=== PATIENT | female | born 1950 | race Caucasian/White ===

== ENCOUNTER 2016-07-15 05:11 | Inpatient (IN) | payer OTHER ==
[2016-06-27 12:55] VITALS: BMI 35.0
--- NOTE | 2016-06-27 13:42 | PAT Medication Instructions ---
Service Date June 27, 2016. Current Home Medication List Alprazolam (Xanax), 0.5 MG PO BID Aspirin (Aspirin), 81 MG PO QAM Atorvastatin (Lipitor), 20 MG PO QPM Calcium Carbonate-Cholecalcife (Calcium 500 +D), 1 TAB PO QAM Canagliflozin (Invokana), 300 MG PO QAM Cholecalciferol (Vitamin D), 1 TAB PO QAM Coenzyme Q10 (Ubidecarenone) (Co Q-10), 1 TAB PO QAM Docusate Sodium (Colace), 1 CAP PO QAM Escitalopram (Lexapro), 10 MG PO QAM Etodolac (Etodolac), 1 TAB PO BID PRN for Pain Gkzcfozlztz-Gxmxykavkty-Wfl C- (Glucosamine Chondroitin), 1 TAB PO BID Hydrocortisone 1% (Hydrocortisone 1%), 1 DOSE TOP DAILY PRN for PRN Insulin Degludec (Tresiba Flextouch), 15 UNITS SQ QAM Multivitamin (Multivitamin), 1 TAB PO QAM Olmesartan/Hctz (Benicar Hct 40/12.5), 1 TAB PO QAM Oxycodone/Acetaminophen 10MG/325MG (Percocet 10MG/325MG), 1 TAB PO Q4H PRN for Pain Oxymorphone Hcl (Opana), 10 MG PO QAM Polyethylene Glycol 3350 (Miralax), 17 GM PO DAILY Probiotic Product (Probiotic), 1 TAB PO QAM Promethazine (Phenergan ), 12.5 MG PO Q6H PRN for Nausea or Vomiting Sennosides-Docusate Sodium (Stool Softener), 50 MG PO QAM Sitagliptin Phosphate (Januvia), 100 MG PO QAM Valacyclovir (Valtrex), 500 MG PO DAILY PRN for PRN Vitamin Mixture (Linda-C), 1,000 MG PO BID Medication Instructions For Your Scheduled Surgery - Check with surgeon for instructions: Etodolac (Etodolac), 1 TAB PO BID PRN for Pain - Hold the following medications 2 weeks prior to surgery: Wbgitbqohpa-Vnjttwcfttz-Rgi C- (Glucosamine Chondroitin), 1 TAB PO BID Coenzyme Q10 (Ubidecarenone) (Co Q-10), 1 TAB PO QAM - Hold the following medications 24 hours prior to surgery: Hydrocortisone 1% (Hydrocortisone 1%), 1 DOSE TOP DAILY PRN for PRN - Hold the following medications the morning of surgery: Vitamin Mixture (Linda-C), 1,000 MG PO BID Sitagliptin Phosphate (Januvia), 100 MG PO QAM Sennosides-Docusate Sodium (Stool Softener), 50 MG PO QAM Probiotic Product (Probiotic), 1 TAB PO QAM Polyethylene Glycol 3350 (Miralax), 17 GM PO DAILY Olmesartan/Hctz (Benicar Hct 40/12.5), 1 TAB PO QAM Multivitamin (Multivitamin), 1 TAB PO QAM Escitalopram (Lexapro), 10 MG PO QAM Docusate Sodium (Colace), 1 CAP PO QAM Cholecalciferol (Vitamin D), 1 TAB PO QAM Canagliflozin (Invokana), 300 MG PO QAM Calcium Carbonate-Cholecalcife (Calcium 500 +D), 1 TAB PO QAM - Take the following medications the morning of surgery with a sip of water: Valacyclovir (Valtrex), 500 MG PO DAILY PRN for PRN Promethazine (Phenergan ), 12.5 MG PO Q6H PRN for Nausea or Vomiting Alprazolam (Xanax), 0.5 MG PO BID Aspirin (Aspirin), 81 MG PO QAM Oxycodone/Acetaminophen 10MG/325MG (Percocet 10MG/325MG), 1 TAB PO Q4H PRN for Pain (okay to take up to 4 hours prior to surgery if needed) Oxymorphone Hcl (Opana), 10 MG PO QAM (okay to take up to 4 hours prior to surgery ifneeded) - Take the following medications as scheduled the night before surgery: Vitamin Mixture (Linda-C), 1,000 MG PO BID Valacyclovir (Valtrex), 500 MG PO DAILY PRN for PRN Promethazine (Phenergan ), 12.5 MG PO Q6H PRN for Nausea or Vomiting Atorvastatin (Lipitor), 20 MG PO QPM Alprazolam (Xanax), 0.5 MG PO BID - For Insulin Dependent Diabetic patients: Test blood sugar A.M. of surgery. - If blood sugar greater than 150, take half of your regular dose of: Insulin Degludec (Tresiba Flextouch), take 8 units - If blood sugar less than 150, do not take any: Insulin Degludec ( Tresiba Flextouch) If you have any questions please call us at [phone] (Breanna López PA-C) or [phone] or [phone]
--- NOTE | 2016-06-27 14:32 | DIAGNOSTIC IMAGING REPORT ---
CHEST 2 VIEWS ROUTINE CLINICAL HISTORY: Preoperative chest COMPARISON STUDY: No previous studies for comparison. FINDINGS: The cardiac and mediastinal contours are normal. There is no evidence of focal pulmonary consolidation. There is no evidence of failure. No pleural effusions are visualized.[ IMPRESSION: No active disease in the chest. Electronically signed by: Jesus Lopez M.D. 06/27/2016 2:30 PM Dictated Date/Time: 06/27/2016 2:30 PM
[2016-06-27 14:35] LABS: BASO % 0.5 %; BASO ABS # 0.03 K/uL (0-0.2); COMPLETE YES; EOS % 2.2 %; HEMATOCRIT 41.5 % (37-47); IG% 0.3 %; LYMPH ABS # 1.62 K/uL (1.2-3.4); MEAN CELL VOLUME 87.7 fL (80-100); MEAN CORPUSCULAR HEMOGLOBIN 27.7 pg (25-34); MEAN CORPUSCULAR HGB CONC 31.6 g/dl (32-36); MEAN PLATELET VOLUME 12.4 fL (7.4-10.4); MONO % 9.7 %; NEUT % 60.3 %; PLATELET COUNT 201 K/uL (130-400); RED BLOOD COUNT 4.73 M/uL (4.2-5.4)
[2016-06-27 14:38] LABS: URINE APPEARANCE CLEAR (CLEAR); URINE BILIRUBIN NEG (NEG); URINE COLOR DK YELLOW; URINE NITRITE NEG (NEG); URINE PH 5.5 (4.5-7.5); URINE SPECIFIC GRAVITY 1.038 (1.000-1.030); UROBILINOGEN NEG (NEG); ZZUR CULT IF INDIC CLEAN CATCH NO
[2016-06-27 14:41] LABS: BUN/CREATININE RATIO 24.6 (10-20); CALCIUM 9.7 mg/dl (8.5-10.1); CREATININE 0.99 mg/dl (0.60-1.20); POTASSIUM 4.4 mmol/L (3.5-5.1)
[2016-06-27 14:42] LABS: PARTIAL THROMBOPLASTIN RATIO 1.1
[2016-06-27 14:45] LABS: MANUAL MICROSCOPIC REQUIRED? NO; REVIEW REQ? NO
[2016-06-28 07:56] LABS: ESTIMATED AVERAGE GLUCOSE 166 mg/dl; HA1C FLAG Normal (Normal)
[~2016-07-15] VITALS: Ht 157.5 cm; Wt 87.5 kg
[2016-07-15] VITALS (9 sets, daily range): BP systolic 100–148; BP diastolic 65–78; PULSE 55–88; TEMP 36.4–37.1; O2SAT 93–97; Ht 157.5 cm; Wt 87.5 kg
[~2016-07-15 05:11] MED LIST: ALPR-411 PO; ASPI-461 PO; ATOR-22 PO; CALC-343 PO; CANA1TAB3 PO; CHOL100010 PO; COEN100C3 PO; DOCU-94 PO; ESCI10TA17 PO; ETOD500T95 PO; GLUCTAB7 PO; HYDCR1CL TOP; INSU1INJ33 SQ; MISCCAP80 PO; MULT-506 PO; OXYC-106 PO; OXYM10TA6 PO; POLY335019 PO; PROM12.57 PO; SENNTAB23 PO; SITA100T3 PO; VALA500T60 PO; VITA500T2 PO; [UNRECOGNIZED DRUG - CODE] PO
[2016-07-15] MEDS ORDERED: LACTATED RINGER'S 1000ML 1,000 ML IV SCH ×2 (06:00)
[2016-07-15] MEDS ORDERED: GABAPENTIN 300 MG CAP PO SCH (06:00)
[2016-07-15] MEDS ORDERED: CEFAZOLIN 2000 MG/60 ML D5W 60 ML IV SCH (06:00)
[2016-07-15] MEDS ORDERED: METOCLOPRAMIDE HCL 10 MG TAB PO SCH (06:00)
[2016-07-15] MEDS ORDERED: CeleBREX 200 MG CAP PO SCH (06:00)
[2016-07-15] MEDS ORDERED: ACETAMINOPHEN 500 MG TAB PO SCH (06:00)
[2016-07-15] MEDS ORDERED: VANCOMYCIN INJ 400 MG in NSS 100ML IR SCH (06:00)
[2016-07-15] MEDS ORDERED: POLYMYXIN B SULFATE 100,000 UNITS in NSS 100ML IR SCH (06:00)
[2016-07-15] MEDS ORDERED: ROPIVACAINE 5MG/ML 30 ML 150 MG, BUPIVACAINE/EPINEPHR 0.5% MPF 30 ML, KETOROLAC TROMETH... INFIL SCH ×7 (06:00)
[2016-07-15] MEDS ORDERED: FAMOTIDINE 20 MG TAB PO SCH (06:00)
[2016-07-15] MEDS ORDERED: LACTATED RINGER'S 1000ML 500 ML IV ONE (06:00)
[2016-07-15] MEDS ORDERED: ORTHO JOINT ANESTHETIC ONE (06:29)
[2016-07-15] MEDS: TRANEXAMIC ACID INJ 1,000 MG in SODIUM CHLORIDE 0.9% 100ML 100 ML IV SCH ×2 (06:30→11:04)
[2016-07-15] MEDS ORDERED: BACITRACIN 50000 UNIT VIAL ONE (06:30)
[2016-07-15] MEDS ORDERED: POVIDONE-IODINE OP SOLN 30 ML BTL ONE ×2 (06:30→07:39)
[2016-07-15] MEDS: OXYCODONE HCL 10 MG TABCR (OXYCONTIN) PO SCH ×2 (06:32→06:33)
[2016-07-15] MEDS ORDERED: FENTANYL CITRATE INJ 50 MCG/1 ML 2 ML VIAL ONE (06:42)
[2016-07-15] MEDS ORDERED: MIDAZOLAM HCL 1 MG/ML 2ML VIAL ONE ×2 (06:42→07:39)
[2016-07-15] MEDS ORDERED: BUPIVACAINE 0.5 % 5 MG/1 ML PF 10ML VIAL ONE (06:48)
--- NOTE | 2016-07-15 07:01 | History and Physical ---
History & Physical Date July 15, 2016. Chief Complaint R HIP PAIN History of Present Illness The patient is a 66 year old female with complaints of R HIP PAIN GREATER THAN 6 MONMTHS. pain 10/10 aggravated by all activities,Cannot walk without cane and distance less than 50 ft. Pain groin and radiates to buttock. Radiograph cw severe avn and head collapse. Additional History Hepatic Disease: No Endocrine Disorder: Yes Kidney Disease: No Hypertension: Yes Heart Disease: No Bleeding Tendencies: No Infectious Diseases: No Other: skin cancer fear of needles Allergies Coded Allergies: Adhesives (Verified Adverse Reaction, Mild, SKIN REDDNESS, 07/15/16) Morphine (Verified Adverse Reaction, Mild, VOMITTING, 07/15/16) Penicillins (Verified Adverse Reaction, Mild, DIARRHEA, 07/15/16) Home Medications Scheduled Alprazolam (Xanax), 0.5 MG PO BID Aspirin (Aspirin), 81 MG PO QAM Atorvastatin (Lipitor), 20 MG PO QPM Calcium Carbonate-Cholecalcife (Calcium 500 +D), 1 TAB PO QAM Canagliflozin (Invokana), 300 MG PO QAM Cholecalciferol (Vitamin D), 1 TAB PO QAM Coenzyme Q10 (Ubidecarenone) (Co Q-10), 1 TAB PO QAM Docusate Sodium (Colace), 1 CAP PO QAM Escitalopram (Lexapro), 10 MG PO QAM Ewobkberizl-Qcrzvpfoice-Wkd C- (Glucosamine Chondroitin), 1 TAB PO BID Insulin Degludec (Tresiba Flextouch), 15 UNITS SQ QAM Multivitamin (Multivitamin), 1 TAB PO QAM Olmesartan/Hctz (Benicar Hct 40/12.5), 1 TAB PO QAM Oxymorphone Hcl (Opana), 10 MG PO QAM Polyethylene Glycol 3350 (Miralax), 17 GM PO DAILY Probiotic Product (Probiotic), 1 TAB PO QAM Sitagliptin Phosphate (Januvia), 100 MG PO QAM Vitamin Mixture (Linda-C), 1,000 MG PO BID Scheduled PRN Etodolac (Etodolac), 1 TAB PO BID PRN for Pain Hydrocortisone 1% (Hydrocortisone 1%), 1 DOSE TOP DAILY PRN for PRN Oxycodone/Acetaminophen 10MG/325MG (Percocet 10MG/325MG), 1 TAB PO Q4H PRN for Pain Promethazine (Phenergan ), 12.5 MG PO Q6H PRN for Nausea or Vomiting Valacyclovir (Valtrex), 500 MG PO DAILY PRN for PRN Physical Examination Skin: warm/dry, no rash Eyes: normal inspection, EOMI, sclerae normal ENT: normal ENT inspection, pharynx normal Head: normocephalic, atraumatic Neck: supple, no adenopathy, trachea midline Respiratory/Chest: lungs clear, normal breath sounds, no respiratory distress Cardiovascular: regular rate, rhythm, no edema, no murmur Abdomen / GI: normal bowel sounds, non tender Extremities: + pertinent finding (R leg extremely painful w motion flex 50 no rotation due to pain ) Neurologic/Psych: no motor/sensory deficits, alert, normal reflexes, oriented x 3 Diagnosis SEVERE DJD/AVN R HIP HTN TYPE 2 DM HIGH CHOLESTEROL ANXIETY HX SKIN CANCER NARCOTIC DEPENDANCE ASA Classification: ASA Class III Plan of Treatment R ANTONIETA
[2016-07-15] MEDS ORDERED: PROPOFOL IV EMULSION 10 MG/ML 20 ML VIAL IV ONE ×2 (07:25→08:12)
[2016-07-15] MEDS ORDERED: LIDOCAINE HCL 2% 2 ML VIAL (20MG/ML) ONE (07:25)
[2016-07-15] MEDS ORDERED: DEXAMETHASONE SOD INJ 4 MG/ML VIAL ONE (07:26)
[2016-07-15] MEDS ORDERED: ONDANSETRON INJ 2 MG/ML 2 ML VIAL ONE (07:26)
[2016-07-15] MEDS ORDERED: FENTANYL CITRATE INJ 50 MCG/1 ML 2 ML VIAL IV PRN (07:30)
[2016-07-15] MEDS ORDERED: EpHEDrine SULFATE INJ 50 MG/ML AMP IV PRN (07:30)
[2016-07-15] MEDS ORDERED: ONDANSETRON INJ 2 MG/ML 2 ML VIAL IV PRN ×2 (07:30→09:00)
[2016-07-15] MEDS ORDERED: ATROPINE SULFATE 0.1 MG/ML 5ML SYR IV PRN (07:30)
[2016-07-15] MEDS ORDERED: PHENYLEPHRINE 100MCG/ML 5ML SYR ONE (07:35)
[2016-07-15] MEDS ORDERED: EpHEDrine SULFATE 50MG/5ML SYR ONE (08:49)
--- NOTE | 2016-07-15 08:50 | [facility] Post Operative Brief Note ---
Immediate Operative Summary Operative Date July 15, 2016. Pre-Operative Diagnosis Right Hip Degenerative Joint Disease Post-Operative Diagnosis Right Hip Degenerative Joint Disease Procedure(s) Performed Right Total Hip Arthroplasty, Direct Anterior Approach Surgeon Dr. Mac Joseph Flaring Machine Operator Surgeon(s) Kita Croft PA-C Estimated Blood Loss 100 mL Findings SEVERE DZ OBESE Specimens A: Right Femoral Head Complication(s) None Disposition Recovery Room / PACU
[2016-07-15] MEDS ORDERED: CANAGLIFLOZIN 300 MG PO SCH (09:00)
[2016-07-15] MEDS ORDERED: ALUMINUM/MAGNESIUM/SIMETH (MAALOX MAX) 30 ML UDC PO PRN (09:00)
[2016-07-15] MEDS ORDERED: HCTZ PO SCH (09:00)
[2016-07-15] MEDS ORDERED: MAGNESIUM HYDROXIDE SUSP 30 ML UDC PO PRN (09:00)
[2016-07-15] MEDS ORDERED: PROMETHAZINE HCL 25 MG TAB PO PRN (09:00)
[2016-07-15] MEDS ORDERED: HYDROCORTISONE 1% CR 30 GM TUBE EXT PRN (09:00)
[2016-07-15] MEDS ORDERED: SITAGLIPTIN 100 MG TAB PO SCH (09:00)
[2016-07-15] MEDS ORDERED: OLMESARTAN PO SCH (09:00)
[2016-07-15] MEDS ORDERED: METOCLOPRAMIDE HCL INJ 5 MG/ML 2 ML VIAL IV PRN (09:00)
[2016-07-15] MEDS ORDERED: TRAMADOL HCL 50 MG TAB PO PRN (09:00)
[2016-07-15] MEDS ORDERED: BISACODYL 10 MG SUPP PR PRN (09:00)
[2016-07-15] MEDS ORDERED: NON-FORMULARY MEDICATION (Probiotic Product (Probiotic) 1 TAB) PO SCH (09:00)
[2016-07-15] MEDS ORDERED: SOD PHOSPHATE/SOD BIPHOSPHATE ENEMA 132 ML BTL PR PRN (09:00)
[2016-07-15] MEDS ORDERED: DiphenhydrAMINE HCL 50 MG/ML VIAL IV PRN (09:00)
[2016-07-15] MEDS ORDERED: ZOLPIDEM TARTRATE 5 MG TAB PO PRN (09:00)
--- NOTE | 2016-07-15 09:03 | DIAGNOSTIC IMAGING REPORT ---
INTRAOPERATIVE FLUOROSCOPIC IMAGE OF THE RIGHT HIP CLINICAL HISTORY: Right hip arthroplasty. COMPARISON STUDY: No previous studies for comparison. Fluoroscopy time: 17 seconds. FINDINGS: Single AP fluoroscopic image demonstrates anatomic alignment of the right hip arthroplasty. There is no fracture or unexpected radiopaque foreign body. Acetabular screw is in place. IMPRESSION: Expected intraoperative findings during right hip arthroplasty. Electronically signed by: Aiden Fraser M.D. 07/15/2016 9:02 AM Dictated Date/Time: 07/15/2016 9:01 AM
--- NOTE | 2016-07-15 09:45 | DIAGNOSTIC IMAGING REPORT ---
AP PELVIS, CROSSTABLE LATERAL RIGHT HIP History: Right total hip arthroplasty. Degenerative arthritis. Postop. FINDINGS: The patient is status post a right total hip arthroplasty. The hardware is intact. No fracture or dislocation. Skin dante and surgical drains are in place. IMPRESSION: Right total hip arthroplasty. No evidence for hardware complication Electronically signed by: Lonnie Mina M.D. 07/15/2016 9:43 AM Dictated Date/Time: 07/15/2016 9:43 AM
--- NOTE | 2016-07-15 10:14 | Anesthesiology Progress Note ---
Anesthesia Post Op Note Date & Time July 15, 2016 at 10:14 Vital Signs Pain Intensity: 0 Vital Signs Past 12 Hours Date Time Temp Pulse Resp B/P Pulse Ox O2 Delivery O2 Flow Rate FiO2 07/15/16 09:50 36.8 64 16 117/62 96 Nasal Cannula 2 07/15/16 09:40 36.8 63 16 121/54 99 Nasal Cannula 2 07/15/16 09:30 15 134/60 97 Nasal Cannula 2 07/15/16 09:20 65 15 118/64 97 Nasal Cannula 2 07/15/16 09:12 36.9 66 15 107/68 95 Nasal Cannula 2 07/15/16 05:38 36.8 88 20 148/76 94 Room Air Notes Mental Status: alert / awake / arousable, participated in evaluation Pt Amnestic to Procedure: Yes Nausea / Vomiting: adequately controlled Pain: adequately controlled Airway Patency, RR, SpO2: stable & adequate BP & HR: stable & adequate Hydration State: stable & adequate Neuraxial Anesthesia: was administered, sensory block is resolving Anesthetic Complications: no major complications apparent
[2016-07-15] MEDS ORDERED: PHARMACY GLYCEMIC MGMT CONSULT SCH (10:32)
--- NOTE | 2016-07-15 10:57 | Pharmacy Progress Note ---
Glycemic Control Intl Consult Date of Service July 15, 2016. Scope Glycemic Pharmacist consulted by Dr Joseph on 07/15/2016 for glycemic control and to write orders per [facility] inpatient glycemic control protocol Objective Weight (Kilograms): 87.50 Accuchecks BSG (last 24hrs): Test 07/15/16 05:31 07/15/16 09:20 Bedside Glucose 159 mg/dl (70-90) 137 mg/dl (70-90) HbA1c Test 06/27/16 13:23 Hemoglobin A1c 7.4 % (4.5-5.6) H Recent Pertinent Medications Outpatient Anti-diabetic Regimen: * Tresiba 15 units qAM; Januvia 100 mg PO qday; Invokana 300 mg PO daily Risk Factors for Insulin Resistance: * Steroids: dex 4 mg IV intraoperatively and 4 mg topically * Infection: Clinda pre-op and q8 post-op * Recent Surgery: hip replacement POD #0 * Diet: type 2 diet Assessment & Plan ASSESSMENT: * ADA & AACE recommend a goal blood sugar range 140-180 mg/dl for the majority of critically ill & non-critically ill patients. However, more stringent targets may be selected in individual cases. Will utilize more stringent goal of 110-140mg/dl based on patient age & comorbidities. Additionally, tighter glycemic control is warranted to facilitate wound/infection healing. * Ms Youngblood is a 66 y/o F admitted post-operatively for a R hip replacement. She received steroids intraoperatively. Her last known dose of Tresiba 15 units morning of 07/14/16. Her blood sugar this morning prior to surgery was 159 mg/dL and 137 mg/dL. Due to steroids use, her home dose of Tresiba was stress by a factor of 1.3 to compensate. A weight-based stress of 2 was utilized for correctional insulin. Her home dose of insulin will be resumed the next day ( POD 1). * The patient's home oral medications, specially Januvia, will be restarted once adequate oral intake is established and patient remains stable. Ideally this will be 1-2 days prior to discharge. PLAN FOR INPATIENT GLYCEMIC CONTROL: * Holding outpatient oral diabetes medications * Basal insulin with LANTUS 20 units SQ x 1 then 15 units daily * Correctional Insulin with NOVOLOG per scale ACHS * Goal Range: Low 110 mg/dL - High 140 mg/dL * Correction Factor: 25 mg/dL/unit * Nutritional / Prandial insulin per carb ratio of 1 unit per 9 grams CHO consumed * Please note that the plan above was derived based on current level of insulin resistance and hospital stress. These recommendations are appropriate for inpatient admission only. Plan of care upon discharge will need to be reassessed to avoid potential outpatient hypo/hyperglycemia. Thank you.
[2016-07-15] MEDS ORDERED: GLUCAGON FOR INJ 1 MG VIAL SQ PRN (11:00)
[2016-07-15] MEDS ORDERED: GLUCOSE 40% GEL 15 GM TUBE PO PRN (11:00)
[2016-07-15] MEDS ORDERED: GLUCOSE 10 TABS/TUBE PO PRN (11:00)
[2016-07-15] MEDS ORDERED: DEXTROSE 50% 50 ML SYR IV PRN (11:00)
[2016-07-15] MEDS ORDERED: INSULIN GLARGINE SOLOSTAR 100 UNITS/ML 3 ML PEN SC ONE (11:00)
[2016-07-15] MEDS: SODIUM CHLORIDE 0.9% 1000ML 1,000 ML IV SCH ×2 (11:00→21:11)
[2016-07-15] MEDS: HYDROCHLOROTHIAZIDE 25 MG TAB PO SCH (12:12)
[2016-07-15] MEDS: CHOLECALCIFEROL 1000 INTER.UNIT TAB PO SCH (12:13)
[2016-07-15] MEDS: MULTIVITAMIN TAB PO SCH (12:13)
[2016-07-15] MEDS: PANTOprazole SOD 40 MG TAB PO SCH (12:13)
[2016-07-15] MEDS: ESCITALOPRAM OXALATE 10 MG TAB PO SCH (12:14)
[2016-07-15] MEDS: POLYETHYLENE (MIRALAX) 17 GM PACK PO SCH (12:14)
[2016-07-15] MEDS: ASPIRIN 81 MG ECTAB PO SCH ×2 (12:14→21:15)
[2016-07-15] MEDS: INSULIN ASPART 100 UNITS/ML 3 ML PEN SC SCH ×3 (12:27→21:25)
[2016-07-15] MEDS: OLMESARTAN MEDOXOMIL 40 MG TAB PO SCH (12:28)
[2016-07-15] MEDS: ALPRAZOLAM 0.5 MG TAB PO SCH ×2 (12:29→21:15)
[2016-07-15] MEDS: KETOROLAC TROMETHAMINE 15 MG/ML VIAL IV. SCH ×2 (12:31→18:04)
[2016-07-15] MEDS: ACETAMINOPHEN 500 MG TAB PO SCH ×2 (13:17→21:18)
[2016-07-15] MEDS: CLINDAMYCIN IV 600 MG in DEXTROSE 5% ADD-VANTAGE 50ML 50 ML IV SCH ×2 (13:17→21:26)
--- NOTE | 2016-07-15 14:50 | OPERATIVE REPORT ---
DATE OF OPERATION: 07/15/2016 PREOPERATIVE DIAGNOSIS: Degenerative arthritis, right hip, severe. POSTOPERATIVE DIAGNOSIS: Same. PROCEDURE: Right total hip replacement. SURGEON: Mac Joseph MD ELECTROPLATER AUTOMATIC: Kita Croft PA-C. ANESTHESIA: Spinal. BLOOD LOSS: 100 mL. REPLACEMENT FLUIDS: 1800 mL of crystalloid. DRAINS: Hemovacs x1. CULTURES: None. COMPLICATIONS: None. COMPONENTS USED: [employer] Hip System: Acetabulum size 58, femur size 3 standard offset, femoral head -3 32 mm. NOTE: Kita Croft PA-C was present and assisted throughout due to the complicated nature of this case. She helped with preparation and set up, first assisted throughout and personally closed the fascial, subcutaneous and skin layers and applied the postoperative dressing. DESCRIPTION: Following satisfactory spinal, the patient was supine. The right leg was placed in the traction device and the left leg in the well leg masterson. The right leg was prepared with ChloraPrep and draped sterilely. Following a surgical time-out an anterior approach was performed in the interval between the sartorius and tensor muscles. The circumflex femoral vessels were identified and ligated. An anterior capsulotomy was performed exposing an arthritic femoral neck and head. Femoral neck and head were trimmed and removed. The acetabular self-retraining retractor was placed. Acetabular preparation was completed and reaming was completed under fluoroscopic guidance. A 48 shell was impacted into an anatomic position and secured with a dome screw. Local anesthetic was placed and after irrigation, the polyethylene liner was placed. Attention was turned to the femur. The femur was placed into position of external rotation, extension and adduction. The femoral canal was prepared up to a size 3 standard offset, the -3 head showed best leg lengths using fluoroscopic landmarks and 3 showed good fit and fill of the proximal canal. The trial component was removed after dislocation. Wound was irrigated. The final implant was placed with fluoroscopy confirming similar position. A Betadine soak was performed. The Betadine was irrigated. A drain was placed. The capsule was closed with 1-0 Vicryl interrupted. The fascia was closed with a running suture of 1 Vicryl, the subcutaneous tissues with 2-0 Vicryl and the skin with a running subcuticular stitch of 3-0 V-Loc. Dermabond and a dry dressing were applied. The patient was returned to her bed in stable condition. I attest to the content of the Intraoperative Record and any orders documented therein. Any exceptio ns are noted below.
[2016-07-15] MEDS ORDERED: TRANEXAMIC ACID INJ 1,000 MG in SODIUM CHLORIDE 0.9% 100ML 100 ML IV ONE (15:00)
[2016-07-15] MEDS ORDERED: ATORVASTATIN 20 MG TAB PO SCH (21:00)
[2016-07-15] MEDS ORDERED: SENNA 8.6 MG TAB PO SCH (21:00)
[2016-07-16] MEDS: KETOROLAC TROMETHAMINE 15 MG/ML VIAL IV. SCH ×4 (00:02→13:17)
[2016-07-16] MEDS ORDERED: NURSING VERBAL MED ORDER ONE ×2 (01:00→01:30)
[2016-07-16] MEDS ORDERED: COUGH DROP (SUGAR FREE) LOZ 24 LOZ/1 BOX ONE (01:26)
[2016-07-16] MEDS ORDERED: COUGH DROP (SUGAR FREE) LOZ 24 LOZ/1 BOX PO PRN (02:00)
[2016-07-16] MEDS: OXYCODONE HCL IR 5 MG TAB (IMMEDIATE RELEASE) PO PRN ×3 (02:54→12:20)
[2016-07-16 03:00] VITALS: BP 123/71; PULSE 77; TEMP 36.8; O2SAT 96
[2016-07-16] MEDS: SODIUM CHLORIDE 0.9% 1000ML 1,000 ML IV SCH (05:32)
[2016-07-16] MEDS: ACETAMINOPHEN 500 MG TAB PO SCH ×2 (05:32→14:35)
[2016-07-16 06:16] LABS: BASO % 0.1 %; BASO ABS # 0.01 K/uL (0-0.2); COMPLETE YES; HEMATOCRIT 33.4 % (37-47); IG% 0.3 %; MEAN CELL VOLUME 86.3 fL (80-100); MEAN CORPUSCULAR HEMOGLOBIN 27.4 pg (25-34); MEAN CORPUSCULAR HGB CONC 31.7 g/dl (32-36); MEAN PLATELET VOLUME 11.8 fL (7.4-10.4); MONO % 10.2 %; NEUT % 82.4 %; PLATELET COUNT 179 K/uL (130-400); RED BLOOD COUNT 3.87 M/uL (4.2-5.4); WHITE BLOOD COUNT 12.77 K/uL (4.8-10.8)
[2016-07-16 06:52] LABS: BUN/CREATININE RATIO 26.9 (10-20); CALCIUM 8.1 mg/dl (8.5-10.1); CREATININE 0.74 mg/dl (0.60-1.20); POTASSIUM 4.2 mmol/L (3.5-5.1)
[2016-07-16 07:15] VITALS: O2SAT 96
--- NOTE | 2016-07-16 08:04 | Anesthesiology Progress Note ---
Anesthesia Post Op Note Date & Time July 16, 2016 at 08:04 Vital Signs Pain Intensity: 5.0 Vital Signs Past 12 Hours Date Time Temp Pulse Resp B/P Pulse Ox O2 Delivery O2 Flow Rate FiO2 07/16/16 07:15 96 Room Air 07/16/16 03:00 36.8 77 19 123/71 96 Room Air 07/16/16 00:00 Room Air 07/15/16 22:48 36.9 74 16 123/65 93 Room Air Notes Mental Status: alert / awake / arousable, participated in evaluation Pt Amnestic to Procedure: Yes Nausea / Vomiting: adequately controlled Pain: adequately controlled Airway Patency, RR, SpO2: stable & adequate BP & HR: stable & adequate Hydration State: stable & adequate Neuraxial Anesthesia: sensory block resolved Anesthetic Complications: no major complications apparent
[2016-07-16 08:15] VITALS: BP 114/62; PULSE 52; TEMP 36.5; O2SAT 96
[2016-07-16] MEDS: ALPRAZOLAM 0.5 MG TAB PO SCH (08:28)
[2016-07-16] MEDS: MULTIVITAMIN TAB PO SCH (08:28)
[2016-07-16] MEDS: PANTOprazole SOD 40 MG TAB PO SCH (08:28)
[2016-07-16] MEDS: HYDROCHLOROTHIAZIDE 25 MG TAB PO SCH (08:29)
[2016-07-16] MEDS: ASPIRIN 81 MG ECTAB PO SCH (08:29)
[2016-07-16] MEDS: POLYETHYLENE (MIRALAX) 17 GM PACK PO SCH (08:30)
[2016-07-16] MEDS: CHOLECALCIFEROL 1000 INTER.UNIT TAB PO SCH (08:30)
[2016-07-16] MEDS: OLMESARTAN MEDOXOMIL 40 MG TAB PO SCH (08:30)
[2016-07-16] MEDS: ESCITALOPRAM OXALATE 10 MG TAB PO SCH (08:31)
[2016-07-16] MEDS: INSULIN ASPART 100 UNITS/ML 3 ML PEN SC SCH ×2 (08:35→13:06)
[2016-07-16] MEDS ORDERED: INSULIN GLARGINE SOLOSTAR 100 UNITS/ML 3 ML PEN SC SCH (09:00)
--- NOTE | 2016-07-16 09:50 | DISCHARGE SUMMARY ---
DISCHARGE DIAGNOSIS: Degenerative joint disease, right hip. SECONDARY DIAGNOSIS: None. CONSULTS: None. COMPLICATIONS: None. PROCEDURE: The patient underwent a direct anterior right total hip arthroplasty with Dr. Joseph on 07/15/2016. BRIEF HISTORY: Please see previously dictated history and physical. HOSPITAL SUMMARY: The patient was admitted on the above day for the above procedure. Procedure went without complication. Postop day 1, the patient was feeling well without complaints. She denied chest pain or shortness of breath. Vital signs were stable. She was afebrile. Dressing was clean, dry and intact. She was neurovascularly intact. Calves were soft and nontender. Hemovac drained 155 and 100 mL. Hemoglobin was 10.6. The patient began physical therapy per protocol. She was discharged to home later that day in stable condition. For further review please see the chart. Lab, x-ray data and discharge instructions as per chart.
--- NOTE | 2016-07-16 09:58 | Discharge Instructions ---
Discharge Instructions Date of Service July 16, 2016. Admission Reason for Admission: Right Hip Degenerative Arthritis Discharge Discharge Diagnosis / Problem: sp right total hip, direct anterior Discharge Goals Goal(s): Decrease discomfort, Improve function, Increase independence Activity Recommendations Activity Limitations: per Instructions/Follow-up section . Instructions / Follow-Up Instructions / Follow-Up ACTIVITY RECOMMENDATIONS: SELF CARE INSTRUCTIONS AFTER TOTAL HIP REPLACEMENT : Direct Anterior Approach Until the incision and soft tissues around your hip have healed, there is a possibility that the hip prosthesis could dislocate. A. Hip flexion ( Up & Down out of chair or steps ) may be difficult. This is normal. B. Numbness in front of the thigh is also normal for a few weeks. C. Use hand rails when walking on stairs. D. Wear low heeled shoes with non-slip soles. E. Be sure that your floors are free of things that could trip you - throw rugs , electrical cords, small objects. Avoid wet and waxed floors, especially with crutches and canes. F. Try to walk several times a day with rest periods between. G. Continue with all the exercises taught to you in the hospital. Again, make walking a part of your daily routine. SPECIAL CARE INSTRUCTIONS: VERY IMPORTANT TO READ AND REVIEW A. You may still be at risk for phlebitis and blood clots. 1. Wear surgical stockings (DAVE hose) for 2 weeks after surgery to improve circulation and reduce swelling. 2. Take Aspirin 81mg twice daily for 4 weeks or as directed by your doctor. This is your blood thinner. 3. High risk patients may be prescribed a stronger blood thinner if necessary. 4. If you are on Coumadin normally, your family doctor/children's literature professor should monitor your blood work. Expect a phone call the day of or the day after bloodwork is drawn to adjust your dosage. B. You must take antibiotics before having dental work, bladder, bowel and other surgery. Your doctor will provide you with a permanent card to carry describing precautions. C. Call [facility] if you have a fever, redness or swelling around the incision, cloudy drainage from incision, or sudden increase in pain in your hip, not relieved by your regular pain medication. D. Please call the office at if you have any concerns or questions about your operation or recovery. * YOU MAY SHOWER, NO TUB BATHS UNTIL CLEARED BY YOUR DOCTOR. - Keep an extra close eye on the top portion of your incision. Be sure to keep clean & dry. * WEAR DAVE HOSE 20 HOURS PER DAY FOR 2 WEEKS. * YOU MAY PROGRESS FROM A WALKER, TO A CANE, TO INDEPENDENT AT YOUR OWN PACE. * MOST PATIENTS WILL HAVE HOME NURSING FOR THERAPY. IF YOU DECIDE TO DO OUTPATIENT PHYSICAL THERAPY, PLEASE SCHEDULE THIS 3 TIMES PER WEEK. * DERMABOND Prineo- This is a mesh tape dressing that is covered with glue. It should remain in place until the incision is properly healed, usually 10-14 days. This dressing is designed to naturally slough off. You may trim the excess mesh tape as it peels off. Incision may be briefly wet in a shower. Dry immediately by blotting with a clean, dry towel. Do not bath or swim until instructed by your doctor. Do not scratch, rub, or pick at the dressing. Do not apply any topical ointments or lotions until dressing is completely removed and/or instructed by your doctor. There may be a small piece of suture material at one end of your incision. Do not pull or trim this. If it is bothersome or catching on clothing, you may cover it with a band-aid. FOLLOW UP VISIT: If appointment is not already scheduled: Please call [facility] to make a follow-up appointment for 2 weeks after your surgery at . Current Hospital Diet Patient's current hospital diet: Diabetes Type 2 Diet Discharge Diet Recommended Diet: Regular Diet Procedures Procedures Performed: Right Total Hip Arthroplasty, Direct Anterior Approach Pending Studies Studies pending at discharge: no Laboratory Results Hemoglobin A1c Test 06/27/16 13:23 Range/Units Estimated Average Glucose 166 mg/dl Hemoglobin A1c 7.4 H 4.5-5.6 % Medical Emergencies . Who to Call and When: Medical Emergencies: If at any time you feel your situation is an emergency, please call 911 immediately. . Non-Emergent Contact Non-Emergency issues call your: Surgeon . "Provider Documentation" section prepared by Kita Croft. . VTE Core Measure Inpt VTE Proph given/why not?: Other Anticoagulation, T.E.D. Stockings, SCD's [place] Drug Monitoring Program Search Results: patient reviewed within database, no issues identified
[2016-07-16] MEDS ORDERED: CLB200 PO (10:02)
[2016-07-16] MEDS ORDERED: ONDA8TAB6 PO (10:02)
[2016-07-16] MEDS ORDERED: ASPI-461 PO (10:02)
[2016-07-16] MEDS ORDERED: RXC5 PO (10:02)
[2016-07-16] MEDS ORDERED: ACET-1138 PO (10:02)
[2016-07-16 10:03] VITALS: BP 114/62; PULSE 52; TEMP 36.5; O2SAT 96
[2016-07-16 10:13] VITALS: O2SAT 97
[2016-07-16 12:17] VITALS: BP 118/62; PULSE 64; TEMP 36.7; O2SAT 96
[2016-07-17] MEDS ORDERED: CeleBREX 200 MG CAP PO SCH (21:00)
[2016-09-28] MEDS ORDERED: RXC5 PO (09:07)
== END 2016-07-16 14:42 | disposition home health service (06) | DRG 470 ==
LOC: ENRESERVTM → ENRESERVDT → C.ACU 05:11 → C.3E 06:30
PROVIDERS: ADMIT Orthopaedic Surgery; ATTEND Orthopaedic Surgery
PROC: 0SR904Z Replacement of Right Hip Joint with Ceramic on Polyethylene Synthetic Substitute, Open Approach (ICD-10-PCS; principal; 2016-07-15 07:00)
DX: M17.12 Unilateral primary osteoarthritis, left knee (principal); M90.551 Osteonecrosis in diseases classified elsewhere, right thigh; I10 Essential (primary) hypertension; E11.9 Type 2 diabetes mellitus without complications; E78.00 Pure hypercholesterolemia, unspecified; F41.9 Anxiety disorder, unspecified; E66.9 Obesity, unspecified; Z68.35 Body mass index [BMI] 35.0-35.9, adult; Z87.891 Personal history of nicotine dependence; Z79.1 Long term (current) use of non-steroidal anti-inflammatories (NSAID); Z79.4 Long term (current) use of insulin; Z79.82 Long term (current) use of aspirin; Z79.84 Long term (current) use of oral hypoglycemic drugs; Z79.891 Long term (current) use of opiate analgesic

== ENCOUNTER 2016-09-25 13:54 | Inpatient (IN) | payer OTHER ==
[~2016-09-25] VITALS: Ht 157.5 cm; Wt 87.0 kg
[~2016-09-25 13:54] MED LIST changes: +ACET-1138 PO; +CLB200 PO; -ETOD500T95 PO; +ONDA8TAB6 PO; -OXYC-106 PO; +RXC5 PO; -SENNTAB23 PO
[2016-09-25] MEDS ORDERED: ONDANSETRON INJ 2 MG/ML 2 ML VIAL IV PRN (14:45)
[2016-09-25] MEDS ORDERED: NALOXONE HCL 0.4 MG/1 ML VIAL/CARP IV PRN (14:45)
[2016-09-25] MEDS ORDERED: LORAZEPAM 1 MG TAB PO PRN (14:45)
[2016-09-25] MEDS ORDERED: PROMETHAZINE HCL 25 MG TAB PO PRN (14:45)
[2016-09-25] MEDS ORDERED: ACETAMINOPHEN 325 MG TAB PO PRN (14:45)
[2016-09-25] MEDS ORDERED: OXYCODONE/ACETAMINOPHEN 5-325 TAB PO PRN (14:45)
[2016-09-25] MEDS ORDERED: PHARMACY GLYCEMIC MGMT CONSULT PRN (15:36)
--- NOTE | 2016-09-25 15:37 | HISTORY & PHYSICAL EXAMINATION ---
DATE OF ADMISSION: 09/25/2016 CHIEF COMPLAINT: Severe left leg pain. HISTORY OF PRESENT ILLNESS: This is a 66-year-old female who is approximately 6 weeks status post right total hip arthroplasty. She had been doing very nicely at home postoperatively, progressing appropriately. Unfortunately, approximately 2 days ago she had onset of back pain and severe left buttock and posterior thigh pain. It was incapacitating in nature. She denies any specific trauma, fall or event. She was taken to [facility] Emergency Room and admitted for pain control. As they were unsuccessful in alleviating her symptoms, she was transferred to our institution. Today, she continues to complain of significant left buttock pain, posterior thigh pain extending to the posterior knee. Right leg is asymptomatic. She is unable to ambulate secondary to the pain. She denies any loss of bowel or bladder control. She denies any perineal numbness. PAST MEDICAL HISTORY: Significant for diabetes and the above-mentioned total hip arthroplasty on the right. MEDICATIONS: Can be found on the chart for further review. PHYSICAL EXAMINATION: She is in obvious distress. Left lower extremity is propped up on pillows. She exhibits reasonable strength to bilateral plantarflexion, dorsiflexion and quadriceps extensor hallucis longus. Sensory is intact to cold and light touch. Negative log roll bilaterally. Significant tension signs with straight leg raising on the left as well as the right causing contralateral pain. CAT scan available for review from [facility] does describe severe multilevel spinal stenosis, severe at L4-L5. 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 PLAN: At this time, secondary to pain I will place her on a AIR HOSE COUPLER pump. We would like to obtain an MRI of the lumbar spine as soon as possible to further delineate any neural compression and the precise etiology. We will also complement this with x-rays of the lumbar spine for review. Consult medicine for medical management. Make further recommendations upon review of her imaging.
[2016-09-25] MEDS ORDERED: GLUCOSE 10 TABS/TUBE PO PRN (15:45)
[2016-09-25] MEDS ORDERED: GLUCOSE 40% GEL 15 GM TUBE PO PRN (15:45)
[2016-09-25] MEDS ORDERED: DEXTROSE 50% 50 ML SYR IV PRN (15:45)
[2016-09-25] MEDS ORDERED: GLUCAGON FOR INJ 1 MG VIAL SQ PRN (15:45)
--- NOTE | 2016-09-25 16:13 | DIAGNOSTIC IMAGING REPORT ---
CHEST 2 VIEWS ROUTINE CLINICAL HISTORY: pre op preoperative evaluation COMPARISON STUDY: 06/27/2016 FINDINGS: The bones soft tissues and hemidiaphragms are normal. The cardiomediastinal silhouette is normal. The lungs are clear. The pulmonary vasculature is normal. IMPRESSION: Negative chest. The above report was generated using voice recognition software. It may contain grammatical, syntax or spelling errors. Electronically signed by: Alton Rgoel M.D. 09/25/2016 4:12 PM Dictated Date/Time: 09/25/2016 4:11 PM
--- NOTE | 2016-09-25 16:34 | Pharmacy Progress Note ---
Glycemic Control Intl Consult Date of Service Sep 25, 2016. Scope Glycemic Pharmacist consulted by Dr Vazquez on 09/25/2016 for glycemic control and to write orders per [facility] inpatient glycemic control protocol Objective Weight (Kilograms): 87.000 Accuchecks BSG (last 24hrs): Test 09/25/16 14:39 Laboratory Data (last 24hrs) Test 09/25/16 14:39 Recent Pertinent Medications Outpatient Anti-diabetic Regimen: * Tresiba 15 units qAM and Invokana 300 mg PO daily * A1c = 7.4 % 06/27/16 Risk Factors for Insulin Resistance: * Diet: type 2 diabetic diet Assessment & Plan ASSESSMENT: * ADA & AACE recommend a goal blood sugar range 140-180 mg/dl for the majority of critically ill & non-critically ill patients. However, more stringent targets may be selected in individual cases. Will utilize more stringent goal of 110-140mg/dl based on patient age & comorbidities. Additionally, tighter glycemic control is warranted to prevent any future damage to future surgeries. * Ms Youngblood is a 66 y/o F admitted with uncontrolled leg and back pain. She is known to the glycemic service from her hip replacement surgery in June of this year. During this previous hospitalization, she tolerated weight based stress of 2 dosing for Lantus and correctional Novolog. She did receive dexamethasone during surgery that admission. * For this admission, no steroids are ordered. After review of imagining Dr Vazquez will determine his course of treatment. Will start a decreased Lantus dose tomorrow morning (reduced further is NPO). Also started slightly looser correctional insulin based on steroid effects from last admission. Recommendations for if steroids start are provided below. PLAN FOR INPATIENT GLYCEMIC CONTROL: * Basal insulin with LANTUS 12 units SQ qAM (10 units if NPO) * Correctional Insulin with NOVOLOG per scale ACHS * Goal Range: Low 110 mg/dL - High 140 mg/dL * Correction Factor: 30 mg/dL/unit * Nutritional / Prandial insulin per carb ratio of 1 unit per 10 grams CHO consumed If steroids are started, change orders to the following: -Lantus 15 units SQ qAM -Correctional insulin with Novolog -correction factor: 20 mg/dL/unit -nutritional insulin per carb ratio of 1 unit per 6 grams CHO consumed -add overnight accuchecks * Please note that the plan above was derived based on current level of insulin resistance and hospital stress. These recommendations are appropriate for inpatient admission only. Plan of care upon discharge will need to be reassessed to avoid potential outpatient hypo/hyperglycemia. Thank you.
[2016-09-25] MEDS: HYDROmorphone HCL 0.5MG/ML 50 ML CASSETTE IV PRN ×2 (16:43→22:50)
[2016-09-25] MEDS: LORAZEPAM INJ 1 MG in SYRINGE 0.5 ML IV PRN (16:48)
[2016-09-25] MEDS ORDERED: GADAVIST IV PRN (17:00)
--- NOTE | 2016-09-25 17:06 | DIAGNOSTIC IMAGING REPORT ---
LUMBAR SPINE COMBINATION HISTORY: Pain back and leg pain TECHNIQUE: Multiplanar multisequence MRI of the lumbar spine was performed both before and after the intravenous administration of contrast. COMPARISON: None. FINDINGS: For the purpose of the report the L5-S1 disc space will be located on axial image 27 of 30. Significant degenerative this changes throughout. No significant bone marrow replacing process. No abnormal postcontrast enhancement. L1-L2: Minimal disc bulge. Minimal impact anterior thecal sac. L2-L3: Minimal disc bulge. Minimal impact anterior thecal sac. L3-L4: No significant central canal or neural foraminal narrowing. L4-L5: Mild broad-based disc herniation with a small extruded disc fragment extending posterior to the left lateral aspect of L5 this. This is a maximum transaxial dimension of 8 x 7 mm. Maximum cephalocaudal dimension is 7 mm. There is moderate compromise of the left lateral recess and mild/moderate narrowing of the neuroforamina bilaterally, as well as spinal canal.. L5-S1: Mild disc bulge. IMPRESSION: 1. Broad-based disc herniation L4-L5 with extruded disc component extending posterior to the superior margin of L5 on the left. 2. There is moderate multifactorial narrowing of the spinal canal at this level as well as compromise of the left lateral recess 3. Maximum dimensions of the extruded disc fragment is 8 x 7 mm 4. Mild disc bulges at all additional levels The above report was generated using voice recognition software. It may contain grammatical, syntax or spelling errors. Electronically signed by: Alton Rogel M.D. 09/25/2016 5:05 PM Dictated Date/Time: 09/25/2016 4:59 PM
[2016-09-25 18:00] VITALS: BMI 35.1
[2016-09-25] MEDS: SODIUM CHLORIDE 0.9% 1000ML 1,000 ML IV SCH (18:13)
[2016-09-25 18:42] VITALS: BP 110/75; PULSE 92; TEMP 36.8; O2SAT 93
[2016-09-25] MEDS: INSULIN ASPART 100 UNITS/ML 3 ML PEN SC SCH ×2 (19:05→21:25)
--- NOTE | 2016-09-25 20:14 | Medical Consult ---
Consultation Date of Consultation: Sep 25, 2016. Attending Physician: Reason for Consultation: Medical management History of Present Illness This patient is a pleasant 66-year-old female that was admitted to the hospital with severe back pain due to spinal stenosis. We're consulted for medical management. The patient has a history of diabetes, hypertension and anxiety. She does not regularly check her sugars at home as she has a phobia of needles. She is on multiple oral agents, and claims that her sugars are well- controlled. She denies any current symptoms besides moderate back pain. No chest pain or shortness of breath. No history of pulmonary embolus or coronary artery disease. The patient underwent a hip arthroplasty earlier this year. Preoperatively, the patient had a stress test that was reportedly normal. She denies any exertional chest pain or dyspnea. Past Medical/Surgical History Hypertension hyperlipidemia Diabetes type 2 Anxiety Status post right hip arthroplasty Family History Strong family history of stroke. Her brother in his 50s of an ND. Social History Smoking Status: Former Smoker Alcohol Use: none Marital Status: Housing Status: lives with significant other Allergies Coded Allergies: Adhesives (Verified Adverse Reaction, Mild, SKIN REDDNESS, 07/15/16) Morphine (Verified Adverse Reaction, Mild, VOMITTING, 07/15/16) Penicillins (Verified Adverse Reaction, Mild, DIARRHEA, 07/15/16) Home Medications I personally verified the patient's medications. Please refer to the medical reconciliation Current Inpatient Medications Current Inpatient Medications Medications (Trade) Dose Ordered Sig/Ramiro Route Start Time Stop Time Status Last Admin Dose Admin Acetaminophen (Tylenol Tab) 650 mg Q6H PRN PO 09/25/16 14:45 10/25/16 14:44 Docusate Sodium (coLACE CAP) 100 mg BID PO 09/25/16 21:00 10/25/16 20:59 Ondansetron HCl (Zofran Inj) 4 mg Q6H PRN IV 09/25/16 14:45 10/25/16 14:44 Lorazepam (Ativan Tab) 1 mg Q6H PRN PO 09/25/16 14:45 10/25/16 14:44 Lorazepam 1 mg/ Syringe 1 ml @ 1 mls/min Q6H PRN IV 09/25/16 14:45 10/25/16 14:44 09/25/16 16:48 1 MLS/MIN Oxycodone/ Acetaminophen (Percocet 5-325mg Tab) Moderate to Severe nahomy... Q4H PRN PO 09/25/16 14:45 10/09/16 14:44 Naloxone HCl (Narcan Inj) 0.1 mg Q5M PRN IV 09/25/16 14:45 10/25/16 14:44 Hydromorphone HCl (Dilaudid Store Person) 25 mg PRN PRN IV 09/25/16 14:45 10/09/16 14:44 09/25/16 16:43 25 MG Sodium Chloride 1,000 ml @ 15 mls/hr Q24H IV 09/25/16 14:39 10/25/16 14:38 09/25/16 18:13 15 MLS/HR Aspirin (Ecotrin Tab) 81 mg BID PO 09/25/16 21:00 10/25/16 20:59 Atorvastatin Calcium (Lipitor Tab) 20 mg QPM PO 09/25/16 21:00 10/25/16 20:59 Escitalopram Oxalate (Lexapro Tab) 10 mg QAM PO 09/26/16 09:00 10/26/16 08:59 Promethazine HCl (Phenergan Tab) 12.5 mg Q6H PRN PO 09/25/16 14:45 10/25/16 14:44 Miscellaneous Information (Order Awaiting Action) 1 ea QS N/A 09/25/16 16:00 10/25/16 15:59 Miscellaneous Information (Consult Glycemic Management Pharmacy) 1 ea UD PRN N/A 09/25/16 15:36 10/25/16 15:35 Insulin Aspart (novoLOG ASPART) SLIDING SCALE ACHS SC 09/25/16 17:15 10/25/16 17:14 09/25/16 19:05 7 UNITS Glucose (Glucose 40% Gel) 15-30 GRAMS 15 GRAMS... UD PRN PO 09/25/16 15:45 10/25/16 15:44 Glucose (Glucose Chew Tab) 4-8 Tablets 4 Tabl... UD PRN PO 09/25/16 15:45 10/25/16 15:44 Dextrose (Dextrose 50% 50ML Syringe) 25-50ML OF 50% DW IV FOR... UD PRN IV 09/25/16 15:45 10/25/16 15:44 Glucagon (Glucagon Inj) 1 mg UD PRN SQ 09/25/16 15:45 10/25/16 15:44 Insulin Glargine (Lantus Solostar Pen) SEE PROTOCOL QAM SC 09/26/16 09:00 10/26/16 08:59 Gadobutrol (Gadavist) 8 mmol UD PRN IV 09/25/16 17:00 09/29/16 16:59 Review of Systems 10 system review performed and negative unless noted in HPI or below Physical Exam Date Time Temp Pulse Resp B/P (MAP) Pulse Ox O2 Delivery O2 Flow Rate FiO2 09/25/16 18:42 36.8 92 19 110/75 (87) 93 Room Air 09/25/16 14:04 37.7 99 16 174/84 96 Room Air General Appearance: no apparent distress Head: normocephalic Eyes: EOMI Neck: no JVD Respiratory/Chest: lungs clear Cardiovascular: regular rate, rhythm Abdomen/GI: normal bowel sounds, non tender, soft Extremities/Musculoskelatal: no calf tenderness, no pedal edema Neurologic/Psych: no motor/sensory deficits, oriented x 3 Skin: warm/dry Laboratory Results Last 24 Hours Test 09/25/16 14:39 09/25/16 18:02 Bedside Glucose 313 mg/dl Assessment & Plan This patient is a 66-year-old female with a history of diabetes, hypertension, hyperlipidemia and anxiety that presents with severe back pain that is failing medical management. She does have severe spinal stenosis. Dr. Vazquez will formulate a plan once he reviews further imaging -pain management, DVT prophylaxis, PT per primary team -I would recommend an aggressive bowel regimen given the amount of narcotics that she is requiring. Colace 100 mg twice daily scheduled. Milk of magnesia 1 dose daily scheduled. MiraLAX prn. ? borderline fever-->repeat vitals show temp WNL -continue to monitor. No current signs of infection. Lo culture if fever returns and hold surgical intervention Diabetes mellitus -Pharmacy managing -Patient is noncompliant with her Accu-Cheks at home. -ADA diet Hypertension -Hold Benicar for now -Cover Hydralazine 10 mg IV q 6 hr PRN Hyperlipidemia -Continue Lipitor 20 mg daily Anxiety -Continue Lexapro 20 mg daily -Continue Xanax 0.5 mg twice daily as needed Given her recent hip arthroplasty and negative stress test, she is an acceptable risk for surgery (pending her EKG, which I ordered). If however the pt spikes a fever, I would delay surgery, and lo culture. Of note, the patient is currently refusing blood work due to her fear of needles. We will give her one dose of xanax and possibly try to obtain blood then Thank you for this consult. We will continue to follow. Resident Physician Supervision Note: Pt seen/examined independently. I discussed the case with the resident and agree with the findings and plan as documented in the note. Any exceptions or clarifications are listed here: 66 y/o F HTN, HPL, DM - presenting for surgical eval due to spinal stenosis / intractable pain OE AAO x 3 S1,3 R CTAB NT, ND No CCE P: Sliding scale for DM Hold ARB dino-op Cont Statin Tx Pt's RCRI is 0.9% - recent normal stress and can proceed to surgery Documented By: Jeremy Recio Resident supervision has been performed by Dr. Recio
[2016-09-25] MEDS ORDERED: HydrALAZINE HCL 20 MG/ML VIAL IV. PRN (20:15)
[2016-09-25] MEDS: DOCUSATE SODIUM 100 MG CAP PO SCH (20:36)
[2016-09-25] MEDS: ASPIRIN 81 MG ECTAB PO SCH (20:36)
[2016-09-25] MEDS: ATORVASTATIN 20 MG TAB PO SCH (20:37)
[2016-09-25] MEDS: MAGNESIUM HYDROXIDE SUSP 30 ML UDC PO SCH (21:27)
[2016-09-25 23:07] VITALS: BP 105/66; PULSE 88; TEMP 36.8; O2SAT 93
[2016-09-26] VITALS (8 sets, daily range): BP systolic 97–120; BP diastolic 62–80; PULSE 74–94; TEMP 36.4–37.3; O2SAT 92–96; Ht 157.5 cm; Wt 87.0 kg
[2016-09-26] MEDS: HYDROmorphone HCL 0.5MG/ML 50 ML CASSETTE IV PRN ×3 (07:03→23:10)
[2016-09-26] MEDS: ESCITALOPRAM OXALATE 10 MG TAB PO SCH (08:21)
[2016-09-26] MEDS: ASPIRIN 81 MG ECTAB PO SCH ×2 (08:22→20:55)
[2016-09-26] MEDS: DOCUSATE SODIUM 100 MG CAP PO SCH ×2 (08:22→20:55)
[2016-09-26] MEDS: MAGNESIUM HYDROXIDE SUSP 30 ML UDC PO SCH ×2 (08:23→20:55)
--- NOTE | 2016-09-26 08:35 | Progress Note ---
Progress Note Date of Service Sep 26, 2016. Progress Note Patient seen this morning with her at the bedside. She continues to complaint of incapacitating left leg pain. She is tearful. Vital signs are stable. On exam she is marked tension signs involving left lower extremity similar to yesterday's exam. MRI available for review does demonstrate significant lateral recess stenosis L4 5 bilaterally with a massive disc herniation at L4 5 on the left with significant caudal migration. There is marked encroachment of the traversing L5 nerve root. Assessment spinal stenosis with superimposed herniated nucleus pulposis L4 5. Plan long discussion with this patient and her reviewing her MRI findings clinical course and treatment options. They do include continued observation medical management injections or surgery. This point the like to pursue surgery in light of the severe stenosis and pre-existing disease to very reasonable option. Would require a lumbar decompression and fusion L4 5. This would allow us to adequately address the lateral recess stenosis as well as decompress the traversing nerve root and addressed the disc herniation. Risks benefits pros cons and alternatives were outlined in detail. Risk include but not limited to from anesthesia blindness sterile process nerve damage but loss requiring transfusion infection requiring reoperation. This point to like to proceed will make her nothing by mouth after midnight and plan for surgery tomorrow.
--- NOTE | 2016-09-26 08:41 | DIAGNOSTIC IMAGING REPORT ---
LUMBAR SPINE 5 VIEWS CLINICAL HISTORY: Preoperative examination. FINDINGS: AP, crosstable lateral, bilateral oblique, and coned-down views of the lumbar spine are obtained. Correlation is made with MRI of lumbar spine dated 09/25/2016. Skeletal structures are osteopenic. Vertebral body height and alignment are maintained throughout the lumbar spine. Anterior osteophytes are seen throughout. Lateral marginal osteophytes are also noted. The transverse and spinous processes appear intact. There is no evidence of spondylolysis. Multilevel facet arthropathy is observed. Moderate to advanced disc space narrowing with endplate sclerosis is seen at L1-L2. Moderate disc space narrowing is seen at L2-L3 and L3-L4. Mild disc space narrowing is seen at the remaining lumbar levels. The visualized bony pelvis appears intact. Mild sclerotic change is noted in the sacroiliac joints. A right hip arthroplasty is partially imaged. There is a nonobstructed abdominal bowel gas pattern. Nonobstructing right renal calculi are noted. There is atherosclerotic calcification of the abdominal aorta. IMPRESSION: 1. No acute bony abnormality is seen involving the lumbosacral spine. 2. Osteopenia and lumbosacral spondylosis as above. 3. Right-sided nephrolithiasis. Dictated: 09/26/2016 8:05 AM Transcribed: 09/26/2016 8:41 AM KENDELL_David Electronically signed by: Horace Harry M.D. 09/26/2016 8:42 AM Dictated Date/Time: 09/26/2016 8:05 AM
[2016-09-26] MEDS ORDERED: INSULIN GLARGINE SOLOSTAR 100 UNITS/ML 3 ML PEN SC SCH (09:00)
[2016-09-26] MEDS: INSULIN ASPART 100 UNITS/ML 3 ML PEN SC SCH ×4 (09:04→20:59)
[2016-09-26] MEDS: ALPRAZOLAM 0.5 MG TAB PO PRN ×2 (09:09→20:59)
[2016-09-26 09:29] LABS: ESTIMATED AVERAGE GLUCOSE 186 mg/dl; HA1C FLAG Normal (Normal)
--- NOTE | 2016-09-26 10:11 | Anesthesiology Progress Note ---
Anesthesia Progress Note Date of Service Sep 26, 2016. Progress Notes Ms. Youngblood is scheduled for a lumbar decompression and fusion of L4-L5 with Dr. Vazquez on 09/27/2016. She had a right ANTONIETA 6 weeks ago and had been doing well until she experienced debilitation pain several days ago (SAB and MAC without issue). Allergies to adhesives, morphine and PCN. PSH significant for right ANTONIETA , HARRISON/BSO, skin excision, T and A, b/l breast lumpectomy and benign neck tumor excision. PMH significant for snoring without YUNIER diagnosis, HTN (no CAD, OK or CP), HLD, severe back pain, IDDM, Nephrolithiasis, skin cancer and obesity. Former smoker as she quit in 2003. Cardiology had seen patient 04/01/16 and noted recent normal stress test and low risk for perioperative cardiac events (prior to hip surgery). EKG shows NSTWA and ant infarct seen on previous EKG's. Of note , patient has SEVERE needle phobia and has been declining blood draws. Hospitalist plan to give xanax prior to blood draw. Airway exam notable for MP 3 , upper dentures and lower missing molars. She was consented for general anesthesia and had all questions answered.
--- NOTE | 2016-09-26 13:22 | Pharmacy Progress Note ---
Glycemic Control Progress Note Date of Service Sep 26, 2016. Scope Glycemic Pharmacist consulted for glycemic control to write orders per [facility] inpatient glycemic control protocol. Objective Accuchecks BSG (last 24hrs): Test 09/25/16 18:02 09/25/16 21:05 09/26/16 08:17 09/26/16 12:11 Bedside Glucose 313 mg/dl (70-90) 180 mg/dl (70-90) 153 mg/dl (70-90) 165 mg/dl (70-90) HbA1c: Test 09/26/16 07:28 Hemoglobin A1c 8.1 % (4.5-5.6) H Recent Pertinent Medications The patient is currently receiving: * Basal insulin: Lantus 12 units every 24 hours * Correctional Insulin: Novolog Correction per scale ACHS Goal Range: Low 110 mg/dL - High 140 mg/dL Correction Factor: 30 mg/dL/unit * Prandial insulin: Per carb ratio of 1 unit per 10 grams CHO consumed * Oral Agents: None at this time Outpatient Anti-Diabetic Meds Invokana 300 mg daily Tresiba 15 units qAM Januvia 100 mg daily Assessment & Plan ASSESSMENT: * See progress note from 09/25 for more background info, in short: * Pt receiving SQ basal bolus insulin regimen for hyperglycemia secondary to baseline DM (outpatient regimen on hold),stress/infection, upcoming surgery * BSGs have improved since admission but are still slightly above goal - will plan to tighten CF instead of giving additional basal with surgery scheduled for tomorrow * Current order is for patient to receive 10 units of Lantus if patient NPO ( this is slightly higher than 1/2 of total daily outpatient dose but her A1c is also slightly elevated so she could benefit from a little more insulin) * Of note, hospitalist also consulted but aware pharmacy is managing glycemic control PLAN FOR INPATIENT GLYCEMIC CONTROL: * Continue Lantus 12 units daily (10 units if NPO) * Tighten correction factor to 25 mg/dl/unit * Continue carb ratio of 1 unit per 10 grams CHO consumed * Continue goal range of Low 110 mg/dL - High 140 mg/dL RECOMMENDATIONS FOR DISCHARGE: * A1c up slightly from a few months ago. I'm not sure how long she's been on the Tresiba but she may benefit from an increase in dose to further improve A1c. Would recommend f/u with outpatient provider. Thank you.
[2016-09-26] MEDS: SODIUM CHLORIDE 0.9% 1000ML 1,000 ML IV SCH (13:56)
--- NOTE | 2016-09-26 14:22 | Hospitalist Progress Note ---
Hospitalist Progress Note Date of Service Sep 26, 2016. Subjective Pt evaluation today including: conversation w/ patient, conversation w/ family , physical exam Pt having severe left lower ext radicular pain for the last month, worse now, can barely move without having severe pain. In tears today. Also had a bloody BM with clots present that RN saved for me to satya at. Pt states she was straining to have a BM and it was hard, had not had a BM in 3 days. States she knows this is from "my hemorrhoids." However, she has never had a colonoscopy and states she never will have one. She has been having BRBPR frequently over the last year since being on opioids and having constipation with her right hip pain and now her left lumbar radiculopathy. All Other Systems: Reviewed and Negative Objective Vital Signs Date Time Temp Pulse Resp B/P (MAP) Pulse Ox O2 Delivery O2 Flow Rate FiO2 09/26/16 12:16 79 20 97/62 (74) 93 Room Air 09/26/16 12:00 36.7 74 14 120/70 (87) 92 Room Air 09/26/16 08:34 95 Room Air 09/26/16 08:30 36.4 84 18 120/80 (93) 95 Room Air 09/26/16 08:30 Room Air 09/26/16 03:07 36.7 76 16 114/71 (85) 93 Room Air 09/25/16 23:56 Room Air 09/25/16 23:07 36.8 88 16 105/66 (79) 93 Room Air 09/25/16 18:42 36.8 92 19 110/75 (87) 93 Room Air 09/25/16 18:00 Room Air 09/25/16 18:00 Room Air 09/25/16 14:04 37.7 99 16 174/84 96 Room Air Physical Exam General Appearance: WD/WN, + mild distress (and tearful with examination), + obese Eyes: normal inspection, sclerae normal ENT: hearing grossly normal Neck: trachea midline Respiratory/Chest: lungs clear, normal breath sounds, no respiratory distress, no accessory muscle use Cardiovascular: regular rate, rhythm, no edema, no gallop, no murmur Abdomen: normal bowel sounds, non tender, soft, no organomegaly, + pertinent finding (pt refused a rectal exam due to severe pain with any movement and did not want to roll onto her side) Extremities: non-tender, normal inspection, no pedal edema, no calf tenderness Neurologic/Psychiatric: alert, + depressed affect, + pertinent finding (+SLR on left,neg on right, motor 5/5 on RLE, LLE with inability to flex hip without severe pain, knee flexion 4/5,knee extension 4/5, dorsiflexion 5/5, great toe dorsiflexion 2/5) Skin: normal color, warm/dry, no rash Laboratory Results Last 24 Hours Test 09/25/16 18:02 09/25/16 21:05 09/26/16 07:28 09/26/16 08:17 Bedside Glucose 313 mg/dl 180 mg/dl 153 mg/dl Estimated Average Glucose 186 mg/dl Hemoglobin A1c 8.1 % Test 09/26/16 12:11 Bedside Glucose 165 mg/dl Assessment and Plan This patient is a 66-year-old female with a history of DMII, hypertension, hyperlipidemia, and anxiety that presents with intractable left sided lumbar radiculopathy that is failing medical management. She does have severe spinal stenosis. Lumbar radiculopathy, intractable pain-failed outpatient treatment with steroids , pain meds, PT -pain management, DVT prophylaxis, PT per primary team -I would recommend an aggressive bowel regimen given the amount of narcotics that she is requiring. Colace 100 mg twice daily scheduled. Milk of magnesia 1 dose daily scheduled. MiraLAX prn. -plan for surgery tomorrow with Dr. Vazquez -Given her recent negative stress test 03/2016, no ongoing ischemia, she is an average and therefore acceptable risk for this intermediate risk surgery Rectal Bleeding-could very well be internal hemorrhoids bleeding from constipation. There were red clots and some blood mixed in with stool today after straining. Pt absolutely refusing colonoscopy in past and future. Declining rectal exam today. COuld have bleeding mass or hemorrhoids given it has gone on for about a year. However, Hgb preop for her ANTONIETA in 06/2016 was normal so doubt this is a malignancy, would expect chronic anemia. -observe clinically -keep stools soft, prevent constipation -follow fingerstick CBC given severe needle phobia Diabetes mellitus II- HgbA1C 8.1% now up from previous 7.4% -Pharmacy managing -Patient is noncompliant with her Accu-Cheks at home due to needle phobia -ADA diet -SSI and Lantus Hypertension-stable -Hold Benicar for now -Cover Hydralazine 10 mg IV q 6 hr PRN Hyperlipidemia-no issues -Continue Lipitor 20 mg daily Anxiety-exacerbated by medical condition and being in hospital -Continue Lexapro 20 mg daily -Continue Xanax 0.5 mg twice daily as needed, lorazepam prn Proph-SCDs, TEDs Dispo-to rehab possibly, PT/OT consults after surgery
[2016-09-26] MEDS: ATORVASTATIN 20 MG TAB PO SCH (20:55)
[2016-09-27] VITALS (8 sets, daily range): BP systolic 114–138; BP diastolic 68–88; PULSE 92–106; TEMP 36.7–37.2; O2SAT 92–98
[2016-09-27] MEDS ORDERED: NURSING DECISION MEDICATION ORDER SCH (02:00)
[2016-09-27] MEDS: LORAZEPAM INJ 1 MG in SYRINGE 0.5 ML IV PRN (06:06)
[2016-09-27] MEDS: INSULIN ASPART 100 UNITS/ML 3 ML PEN SC SCH ×4 (06:06→22:04)
[2016-09-27] MEDS ORDERED: FENTANYL CITRATE INJ 50 MCG/1 ML 2 ML VIAL ONE ×4 (06:47→09:43)
[2016-09-27] MEDS ORDERED: MIDAZOLAM HCL 1 MG/ML 2ML VIAL ONE ×2 (06:47→07:46)
[2016-09-27] MEDS ORDERED: SODIUM CHLORIDE 0.9% PF 50 ML VIAL ONE (06:55)
[2016-09-27] MEDS ORDERED: BUPIVACAINE/EPINEPHRINE 0.5% MPF 1:200,000 10 ML VIAL ONE (06:55)
[2016-09-27] MEDS ORDERED: BACITRACIN 50000 UNIT VIAL ONE (06:56)
[2016-09-27] MEDS ORDERED: SCOPOLAMINE 1.5 MG TDSY TD ONE (06:58)
[2016-09-27] MEDS ORDERED: EpHEDrine SULFATE INJ 50 MG/ML AMP IV PRN (07:00)
[2016-09-27] MEDS ORDERED: FENTANYL CITRATE INJ 50 MCG/1 ML 2 ML VIAL IV PRN (07:00)
[2016-09-27] MEDS ORDERED: HYDROmorphone INJ 1 MG/ML SYR IV PRN (07:00)
[2016-09-27] MEDS ORDERED: ONDANSETRON INJ 2 MG/ML 2 ML VIAL IV PRN ×2 (07:00→10:00)
[2016-09-27] MEDS ORDERED: ATROPINE SULFATE 0.1 MG/ML 5ML SYR IV PRN (07:00)
--- NOTE | 2016-09-27 07:24 | History & Physical Bridge Note ---
H&P Re-Evaluation Bridge Note: I have examined the patient, reviewed the History & Physical and in the interval since the performance of the History & Physical I have noted the following changes of clinical significance: No changes noted
[2016-09-27] MEDS ORDERED: CLINDAMYCIN 600 MG/54 ML D5W IV ONE (07:46)
[2016-09-27] MEDS ORDERED: NURSING VERBAL MED ORDER STA (07:51)
[2016-09-27 08:01] LABS: HEMATOCRIT 31.4 % (37-47); MEAN CELL VOLUME 85.6 fL (80-100); MEAN CORPUSCULAR HEMOGLOBIN 26.4 pg (25-34); MEAN PLATELET VOLUME 10.6 fL (7.4-10.4); PLATELET COUNT 314 K/uL (130-400); RED BLOOD COUNT 3.67 M/uL (4.2-5.4); WHITE BLOOD COUNT 22.42 K/uL (4.8-10.8)
[2016-09-27 08:19] LABS: ALT/SGPT 12 U/L (12-78); BLOOD UREA NITROGEN 27 mg/dl (7-18); BUN/CREATININE RATIO 45.3 (10-20); CALCIUM 7.6 mg/dl (8.5-10.1); CARBON DIOXIDE 26 mmol/L (21-32); CHLORIDE 106 mmol/L (98-107); GLUCOSE 164 mg/dl (70-99); MEAN CORPUSCULAR HGB CONC 30.9 g/dl (32-36); SODIUM 138 mmol/L (136-145)
[2016-09-27 08:22] LABS: ALB/GLOB RATIO 0.7 (0.9-2); ALKALINE PHOSPHATASE 79 U/L (45-117); AST/SGOT 17 U/L (15-37)
[2016-09-27] MEDS: ASPIRIN 81 MG ECTAB PO SCH ×2 (08:31→21:54)
[2016-09-27] MEDS: ESCITALOPRAM OXALATE 10 MG TAB PO SCH (08:31)
[2016-09-27] MEDS: MAGNESIUM HYDROXIDE SUSP 30 ML UDC PO SCH ×2 (08:31→21:00)
[2016-09-27] MEDS: DOCUSATE SODIUM 100 MG CAP PO SCH ×2 (08:31→21:54)
[2016-09-27] MEDS ORDERED: HYDROmorphone INJ 2 MG/ML SYR/VIAL ONE ×2 (08:37→09:48)
[2016-09-27] MEDS ORDERED: DEXAMETHASONE SOD INJ 4 MG/ML VIAL ONE (08:54)
[2016-09-27] MEDS ORDERED: PROPOFOL IV EMULSION 10 MG/ML 20 ML VIAL IV ONE (08:54)
[2016-09-27] MEDS ORDERED: LIDOCAINE HCL 2% 2 ML VIAL (20MG/ML) ONE (08:54)
[2016-09-27] MEDS ORDERED: ROCURONIUM BROMIDE 10 MG/ML 5 ML VIAL ONE (08:54)
[2016-09-27] MEDS ORDERED: PHENYLEPHRINE 100MCG/ML 5ML SYR ONE ×2 (08:54→09:52)
[2016-09-27] MEDS ORDERED: ONDANSETRON INJ 2 MG/ML 2 ML VIAL ONE ×2 (08:54→09:52)
[2016-09-27] MEDS ORDERED: INSULIN GLARGINE SOLOSTAR 100 UNITS/ML 3 ML PEN SC SCH (09:00)
[2016-09-27] MEDS ORDERED: FLOSEAL HEMOSTATIC MATRIX 10ML TOP ONE (09:41)
[2016-09-27] MEDS ORDERED: SODIUM CHLORIDE 0.9% 1000ML 1,000 ML IV SCH (09:48)
[2016-09-27] MEDS ORDERED: GLYCOPYRROLATE INJ 0.2 MG/ML VIAL ONE (09:52)
[2016-09-27] MEDS ORDERED: NEOSTIGMINE METHYLSULFATE 1 MG/ML 10ML VIAL ONE (09:52)
--- NOTE | 2016-09-27 09:58 | [facility] Operative Report ---
Operative Report Operative Date Sep 27, 2016. Pre-Operative Diagnosis Lumbar disc herniation L4-L5 with radiculopathy on the left. Post-Operative Diagnosis Lumbar disc herniation L4-L5 with radiculopathy on the left. Procedure(s) Performed #1 lumbar decompression medial facetectomies foraminotomies L4 5 2 posterior spinal fusion L4 5. 3 placement of posterior instrumentation L4 5 4 interbody fusion L4 5 #5 placement peek cage L4 5 13 x 22 mm. #6 placement infuse collagen sponge combined Master graft in the posterior lateral gutters. The bone graft in the interbody space. #7 placement of locally harvested morcellized autograft the posterior gutters. Surgeon Dr. Vazquez Turf Sales Person Surgeon(s) Manfred Raman PA-C Estimated Blood Loss 200 cc Findings Severe spinal stenosis with herniated nucleus pulposus Specimens none per surgeon Description of Procedure Patient was met with preoperatively case discussed all questions are dressed with a point patient was taken back to the operative suite after undergoing successful intubation placed in a prone position on the Armand table W Bernard frame PROMISES WELL-PADDED EYES INSPECTED TO ENSURE THERE IS NO EXTERNAL PRESSURE PLACED UPON THEM. THIS POINT THE LUMBAR SPINES PREPPED AND DRAPED NOSTRIL FASHION. SHARP DISSECTION THE ASSISTANCE OF BOVIE CAUTERY PERFORMED ONTO AN EXPOSING THE LAMINA AND TRANSVERSE PROCESSES OF L4 AND L5 BILATERALLY. FROM A CAUDAL TO CEPHALAD FASHION COMPLETE LAMINECTOMY OF L4 WAS PERFORMED ADDRESSING SEVERE LATERAL RECESS STENOSIS WELL ADDRESSING A MASSIVE DISC HERNIATION AT L4 5 ON THE LEFT HAD CAUDALLY MIGRATED. After complete decompression pedicle screws were placed in L4 and L5 bilaterally with assistance of fluoroscopy in the appropriate size dav placed between foraminal approach on the left complete discectomy was performed and plate created to subcortical bleeding bone and a 13 x 20 mm peek cage filled with Dian bone grafting tapped in position. Brought in and compressed and locked and final position bilaterally. The transverse processes of L4-L5 burred to subcortical bleeding bone infuse collagen sponge mask graft locally harvested morcellized autograft placed the posterior gutters. 15 round ISAC drain was inserted. Incision was then closed with 1 Vicryl in the fascia 2-0 Vicryl subcutaneous C4 0 Monocryl for final skin closure. Steri-Strips sterile dressing placed patient we can taken to PACU stable condition. Please note Andrés record was present of the entire procedure involved in patient positioning complex portions of the procedure and final skin closure. I attest to the content of the Intraoperative Record and any orders documented therein. Any exceptions are noted below.
[2016-09-27] MEDS ORDERED: hydrOXYzine HCL 25 MG TAB PO PRN (10:00)
[2016-09-27] MEDS ORDERED: MAGNESIUM HYDROXIDE SUSP 30 ML UDC PO PRN (10:00)
[2016-09-27] MEDS ORDERED: ACETAMINOPHEN IV 100 ML IV PRN (10:00)
[2016-09-27] MEDS ORDERED: LORAZEPAM 0.5 MG TAB PO PRN (10:00)
[2016-09-27] MEDS ORDERED: ALUMINUM/MAGNESIUM SUSP 30 ML UDC PO PRN (10:00)
[2016-09-27] MEDS ORDERED: DO NOT ADMINISTER PNEUMOCOCCAL VACCINE PRN ×2 (10:00)
[2016-09-27] MEDS ORDERED: ACETAMINOPHEN 500 MG TAB PO PRN (10:00)
[2016-09-27] MEDS ORDERED: LORAZEPAM INJ 0.5 MG in SYRINGE 0 ML IV PRN (10:00)
[2016-09-27] MEDS ORDERED: DO NOT ADMINISTER FLU VACCINE PRN ×3 (10:00)
[2016-09-27] MEDS ORDERED: HYDROmorphone HCL 0.5MG/ML 50 ML CASSETTE IV PRN (10:00)
[2016-09-27] MEDS ORDERED: METOCLOPRAMIDE HCL INJ 5 MG/ML 2 ML VIAL IV PRN (10:00)
[2016-09-27] MEDS ORDERED: SOD PHOSPHATE/SOD BIPHOSPHATE ENEMA 132 ML BTL PR PRN (10:00)
[2016-09-27] MEDS ORDERED: FAMOTIDINE 20 MG TAB PO PRN (10:00)
[2016-09-27] MEDS ORDERED: PROMETHAZINE HCL INJ 12.5 MG in SODIUM CHLORIDE 0.9% 50ML 50 ML IV PRN (10:00)
[2016-09-27] MEDS ORDERED: BISACODYL 10 MG SUPP PR PRN (10:00)
[2016-09-27] MEDS ORDERED: NALOXONE HCL 0.4 MG/1 ML VIAL/CARP IV PRN (10:00)
[2016-09-27] MEDS ORDERED: HYDROmorphone INJ 0.5 MG/0.5 ML SYR IV PRN (10:00)
--- NOTE | 2016-09-27 10:16 | DIAGNOSTIC IMAGING REPORT ---
INTRAOPERATIVE RADIOGRAPHS CLINICAL HISTORY: L4-L5 spinal fusion. Fluoroscopy time: 12 seconds. FINDINGS: 3 spot fluoroscopic views of the lumbar spine are presented. There is evidence of laminectomy and posterior fusion at L4-L5. Interpedicular screws are present at both levels. Orthopedic hardware appears intact. There is been discectomy at L4-L5. IMPRESSION: Intraoperative images from L4 -L5 spinal fusion as above. Electronically signed by: Horace Harry M.D. 09/27/2016 10:15 AM Dictated Date/Time: 09/27/2016 10:14 AM
[2016-09-27] MEDS: HYDROmorphone HCL 0.5MG/ML 50 ML CASSETTE IV PRN ×4 (10:19→23:12)
[2016-09-27] MEDS ORDERED: INSULIN GLARGINE SOLOSTAR 100 UNITS/ML 3 ML PEN SC ONE ×2 (11:00→21:00)
[2016-09-27 11:32] LABS: URINE APPEARANCE TURBID (CLEAR); URINE BILIRUBIN NEG (NEG); URINE COLOR YELLOW; URINE EPITHELIAL CELL AUTO >30 /lpf (0-5); URINE NITRITE POS (NEG); URINE PH 6.5 (4.5-7.5); URINE SPECIFIC GRAVITY 1.032 (1.000-1.030); UROBILINOGEN NEG (NEG); ZZURINE CULT IF INDIC CATH YES
[2016-09-27 11:35] LABS: MANUAL MICROSCOPIC REQUIRED? NO; REVIEW REQ? YES
[2016-09-27] MEDS: SODIUM CHLORIDE 0.9% 1000ML 1,000 ML IV SCH ×4 (11:52→22:22)
--- NOTE | 2016-09-27 12:04 | Anesthesiology Progress Note ---
Anesthesia Post Op Note Date & Time Sep 27, 2016 at 12:04 Vital Signs Pain Intensity: 3 Vital Signs Past 12 Hours Date Time Temp Pulse Resp B/P (MAP) Pulse Ox O2 Delivery O2 Flow Rate FiO2 09/27/16 11:30 37 108 16 146/102 95 Nasal Cannula 4 09/27/16 11:20 37 100 16 137/90 95 Nasal Cannula 4 09/27/16 11:10 37 102 16 153/77 95 Nasal Cannula 4 09/27/16 11:00 100 16 162/101 100 Nasal Cannula 4 09/27/16 10:50 109 16 150/95 100 Nasal Cannula 4 09/27/16 10:40 80 16 164/113 100 Nasal Cannula 4 09/27/16 10:30 104 16 171/80 100 Nasal Cannula 4 09/27/16 10:20 118 16 164/70 100 Mask 10 09/27/16 10:10 61 16 167/92 100 Mask 10 09/27/16 10:04 36.6 93 16 147/96 96 Mask 10 09/27/16 06:36 36.8 109 20 110/77 (88) 97 Room Air 09/27/16 06:30 36.9 104 18 121/75 (90) 98 Room Air 09/27/16 03:24 36.8 106 22 133/80 (97) 93 Room Air 09/27/16 00:25 Room Air Notes Mental Status: alert / awake / arousable, participated in evaluation Pt Amnestic to Procedure: Yes Nausea / Vomiting: adequately controlled Pain: adequately controlled Airway Patency, RR, SpO2: stable & adequate BP & HR: stable & adequate Hydration State: stable & adequate Anesthetic Complications: no major complications apparent
--- NOTE | 2016-09-27 13:16 | Pharmacy Progress Note ---
Glycemic Control Progress Note Date of Service Sep 27, 2016. Scope Glycemic Pharmacist consulted for glycemic control to write orders per [facility] inpatient glycemic control protocol. Objective Accuchecks BSG (last 24hrs): Test 09/26/16 17:12 09/26/16 20:47 09/27/16 05:28 09/27/16 07:40 Bedside Glucose 165 mg/dl (70-90) 164 mg/dl (70-90) 165 mg/dl (70-90) Random Glucose 164 mg/dl (70-99) Test 09/27/16 10:45 Bedside Glucose 186 mg/dl (70-90) HbA1c: Test 09/26/16 07:28 Hemoglobin A1c 8.1 % (4.5-5.6) H Recent Pertinent Medications The patient is currently receiving: * Basal insulin: Lantus 12 units every 24 hours * Correctional Insulin: Novolog Correction per scale Q6H Goal Range: Low 110 mg/dL - High 140 mg/dL Correction Factor: 25 mg/dL/unit * Prandial insulin: Per carb ratio of 1 unit per 10 grams CHO consumed * Oral Agents: None at this time Outpatient Anti-Diabetic Meds Invokana 300 mg daily Januvia 100 mg daily Tresiba 15 mg qAM Assessment & Plan ASSESSMENT: * See progress note from 09/26 for more background info, in short: * Pt receiving SQ basal bolus insulin regimen for hyperglycemia secondary to baseline DM (outpatient regimen on hold),stress/infection, surgery * Patient now s/p lumbar surgery and will receive 3 doses of postop Decadron in addition to intraop Decadron * She received 29 units of insulin yesterday with BSGs holding steady around 165 for the past 24 hours * Insulin calculator estimates for postop dosing will be based off of est TDD of 30 units and stress level of 3 for today's dosing, stress level of 2 for POD #1 dosing and anticipate patient going back to baseline requirements on POD #2 PLAN FOR INPATIENT GLYCEMIC CONTROL: * Basal doses: * Lantus 22 units x 1 this AM - did not receive dose preop so ordered to receive immediately postop * Additional 6 units tonight if BSG > 140 * For 09/28 AM - 20 units if BSG in range (15 units if below and 28 units if above) * For 09/29 AM - 15 units * Correctional/prandial doses: * TIGHTEN CF to 20 (anticipate going back to 25 with lunch or dinner tomorrow - will depend on BSGs) * TIGHTEN CR to 6 (anticipate going to 8 with lunch or dinner tomorrow - will depend on BSGs) RECOMMENDATIONS FOR DISCHARGE: * A1c up slightly from a few months ago. I'm not sure how long she's been on the Tresiba but she may benefit from an increase in dose to further improve A1c. Would recommend f/u with outpatient provider. Thank you.
[2016-09-27] MEDS: CLINDAMYCIN IV 600 MG in DEXTROSE 5% 50ML 50 ML IV SCH ×2 (15:41→23:39)
--- NOTE | 2016-09-27 15:56 | GASTROINTESTINAL CONSULTATION ---
DATE OF CONSULTATION: 09/27/2016 AGE: 66. SEX: Female. RACE: . ATTENDING PHYSICIAN: Dr. Lira. CONSULTING PHYSICIAN: Dr. Liang. REASON FOR CONSULTATION: Rectal bleeding. HISTORY OF PRESENT ILLNESS: Christine Youngblood is a 66-year-old female who presented to the hospital with severe back pain on September 25 secondary to spinal stenosis. During the course of her hospitalization, she was noted to have an episode of bright red rectal bleeding with passage of a bowel movement and did have a decline in her H&H from her most previous H&H in June of 2016 of 10.6 and 33.4 to today's level of 9.7 and 31.4. The patient herself states that she has had intermittent bright red rectal bleeding, which she has attributed to hemorrhoids for a few years. She states that she has had recently been on narcotic analgesics secondary to hip pain, for which she underwent a right total hip replacement and continued narcotic analgesic use secondary to spinal stenosis. She states that she is not interested at all and having a colonoscopy performed nor does she want to have an evaluation including a rectal examination as she knows that "these are hemorrhoids and I am sick of having testing." She denies any weight loss. She further denies any hematemesis, history of peptic ulcer disease or other complaints at this time. She does have a history of having constipation, which she believes as a side effect from the pain medications which she takes. She denies any further complaints. It should be noted that she did undergo surgery today with Dr. Vazquez including a lumbar decompression. PAST MEDICAL HISTORY: Significant for hypertension, hyperlipidemia, type 2 diabetes, anxiety, and spinal stenosis. PAST SURGICAL HISTORY: Includes a right total hip replacement. ALLERGIES: INCLUDE ADHESIVES, MORPHINE AND PENICILLINS. MEDICATIONS: At the present time are extensive and were reviewed. It should be noted that she is on a bowel regimen. SOCIAL HISTORY: She denies any tobacco, alcohol or illicit drug use. She is . FAMILY HISTORY: Negative for GI malignancy or inflammatory bowel disease. REVIEW OF SYSTEMS: Negative 10-system review other than pertinent positives listed in the HPI. PHYSICAL EXAMINATION: VITAL SIGNS: Include a temp of 36.7, pulse 105, respirations 19, blood pressure 114/72, and pulse ox 97% on room air. GENERAL: She is awake, cooperative, slightly agitated, in no acute distress. She is obese and chronic ill appearing. HEAD: Normocephalic and atraumatic. EYES: Pupils equally round. Extraocular muscles are intact. Sclerae are nonicteric. ENT: External evaluation of ears and nose are normal. Oropharynx is clear. NECK: Soft and supple. There is no JVD or lymphadenopathy. CHEST: Decreased breath sounds at bilateral bases. CARDIOVASCULAR SYSTEM: Regular rate and rhythm. ABDOMEN: Soft, nontender, and nondistended. Positive bowel sounds. There is no hepatosplenomegaly or stigmata of chronic liver disease. EXTREMITIES: No clubbing, cyanosis, or edema. LABORATORY STUDIES: From today include a white blood cell count of 22.42, hemoglobin 9.7, hematocrit 31.4 and a platelet count of 314. Sodium is 138, potassium 5.0, chloride 106, bicarbonate 26, BUN 27, creatinine 0.6, blood glucose of 164, and calcium 7.6. Total bilirubin 0.2. AST 17, ALT 12, and alkaline phosphatase 79. Total protein 6.1 and albumin 2.5. IMPRESSION: A 66-year-old female who has bright red rectal bleeding as well as acute blood loss anemia. PLAN: At the present time, she refuses any further workup for her GI bleeding. She refuses to have a rectal examination. She further refuses colonoscopy or upper endoscopy. In that regard, I would recommend that she be continued on her current bowel regimen, which includes milk of magnesia as well as Dulcolax, senna and MiraLax therapy. I would recommend limiting narcotic analgesic use as best as possible as this can worsen her constipation, though in the current postop state, she will need pain control as well. Finally, I would recommend that the patient be placed on Protonix 40 mg by mouth daily. I will follow her clinical course and make further recommendations as needed. If she continues to have bleeding, consideration could be given to performing a CT scan of the abdomen and pelvis with p.o. and IV contrast to rule out a colon cancer or other gross abnormality. Once again, thanks for allowing me to participate in the care of this patient. If you have any further questions, please do not hesitate in contacting me.
[2016-09-27] MEDS ORDERED: NURSING VERBAL MED ORDER ONE (16:00)
[2016-09-27] MEDS: DEXAMETHASONE INJ 6 MG in SYRINGE 0 ML IV SCH (18:44)
[2016-09-27] MEDS: ATORVASTATIN 20 MG TAB PO SCH (21:00)
[2016-09-27] MEDS: DOCUSATE SODIUM/SENNA 50/8.6MG TAB PO SCH (21:53)
[2016-09-28] VITALS (14 sets, daily range): BP systolic 123–163; BP diastolic 69–88; PULSE 58–97; TEMP 36.6–37.1; O2SAT 92–96
--- NOTE | 2016-09-28 00:03 | Hospitalist Progress Note ---
Hospitalist Progress Note Date of Service Sep 27, 2016. Subjective Pt evaluation today including: conversation w/ patient, conversation w/ family Voiding: valdez catheter in place Pt had lumbar surgery today which went well. SHe now has no pain radiating down the left leg. However, she is still extremely anxious about her ongoing rectal bleeding, and then was told she had hematuria in her Valdez. Says she cannot stop thinking about all the things that are wrong with her and she is so anxious but doesn't want to take anything to help her settle down. Seen by GI today but told GI she didn't want anything done. Respiratory: No shortness of breath Cardiovascular: No chest pain All Other Systems: Reviewed and Negative Objective Vital Signs Date Time Temp Pulse Resp B/P (MAP) Pulse Ox O2 Delivery O2 Flow Rate FiO2 09/27/16 15:21 37.1 99 16 123/73 (90) 92 Room Air 09/27/16 13:51 36.7 105 19 114/72 (86) 97 Room Air 09/27/16 13:09 Room Air 09/27/16 12:45 37.1 101 18 138/88 (105) 96 Room Air 09/27/16 12:22 103 16 116/73 (87) 93 Room Air 09/27/16 11:50 Nasal Cannula 4.0 09/27/16 11:30 37 108 16 146/102 95 Nasal Cannula 4 09/27/16 11:20 37 100 16 137/90 95 Nasal Cannula 4 09/27/16 11:10 37 102 16 153/77 95 Nasal Cannula 4 09/27/16 11:00 100 16 162/101 100 Nasal Cannula 4 09/27/16 10:50 109 16 150/95 100 Nasal Cannula 4 09/27/16 10:40 80 16 164/113 100 Nasal Cannula 4 09/27/16 10:30 104 16 171/80 100 Nasal Cannula 4 09/27/16 10:20 118 16 164/70 100 Mask 10 09/27/16 10:10 61 16 167/92 100 Mask 10 09/27/16 10:04 36.6 93 16 147/96 96 Mask 10 09/27/16 06:36 36.8 109 20 110/77 (88) 97 Room Air 09/27/16 06:30 36.9 104 18 121/75 (90) 98 Room Air 09/27/16 03:24 36.8 106 22 133/80 (97) 93 Room Air 09/27/16 00:25 Room Air 09/26/16 22:58 37.3 94 18 115/64 (81) 96 Room Air 09/26/16 20:09 36.7 89 18 120/73 (89) 93 Room Air Physical Exam General Appearance: WD/WN, no apparent distress Eyes: normal inspection, sclerae normal ENT: hearing grossly normal Neck: trachea midline Respiratory/Chest: lungs clear, normal breath sounds, no respiratory distress, no accessory muscle use Cardiovascular: regular rate, rhythm, no edema, no gallop, no murmur Abdomen: normal bowel sounds, non tender, soft, no organomegaly Extremities: non-tender, no pedal edema Neurologic/Psychiatric: alert, + pertinent finding (very anxious, tearful at times) Skin: normal color, warm/dry, no rash Laboratory Results Last 24 Hours Test 09/26/16 20:47 09/27/16 05:28 09/27/16 07:40 09/27/16 10:45 Bedside Glucose 164 mg/dl 165 mg/dl 186 mg/dl White Blood Count 22.42 K/uL Red Blood Count 3.67 M/uL Hemoglobin 9.7 g/dL Hematocrit 31.4 % Mean Corpuscular Volume 85.6 fL Mean Corpuscular Hemoglobin 26.4 pg Mean Corpuscular Hemoglobin Concent 30.9 g/dl RDW Standard Deviation 48.7 fL RDW Coefficient of Variation 15.5 % Platelet Count 314 K/uL Mean Platelet Volume 10.6 fL Sodium Level 138 mmol/L Potassium Level 5.0 mmol/L Chloride Level 106 mmol/L Carbon Dioxide Level 26 mmol/L Anion Gap 6.0 mmol/L Blood Urea Nitrogen 27 mg/dl Creatinine 0.60 mg/dl Est Creatinine Clear Calc Drug Dose 91.9 ml/min Estimated GFR () 108.5 Estimated GFR (Non- 93.7 BUN/Creatinine Ratio 45.3 Random Glucose 164 mg/dl Calcium Level 7.6 mg/dl Total Bilirubin 0.2 mg/dl Direct Bilirubin < 0.1 mg/dl Aspartate Amino Transf (AST/SGOT) 17 U/L Alanine Aminotransferase (ALT/SGPT) 12 U/L Alkaline Phosphatase 79 U/L Total Protein 6.1 gm/dl Albumin 2.5 gm/dl Globulin 3.6 gm/dl Albumin/Globulin Ratio 0.7 Test 09/27/16 11:11 09/27/16 17:11 Urine Color YELLOW Urine Appearance TURBID Urine pH 6.5 Urine Specific [place] 1.032 Urine Protein TRACE Urine Glucose (UA) 3+ Urine Ketones NEG Urine Occult Blood 3+ Urine Nitrite POS Urine Bilirubin NEG Urine Urobilinogen NEG Urine Leukocyte Esterase MODERATE Urine WBC (Auto) >30 /hpf Urine RBC (Auto) >30 /hpf Urine Hyaline Casts (Auto) 0 /lpf Urine Epithelial Cells (Auto) >30 /lpf Urine Bacteria (Auto) 4+ Urine Pathogenic Casts /lpf Bedside Glucose 213 mg/dl Assessment and Plan This patient is a 66-year-old female with a history of DMII, hypertension, hyperlipidemia, and anxiety that presents with intractable left sided lumbar radiculopathy that is failing medical management. She does have severe spinal stenosis. Lumbar radiculopathy, intractable pain-failed outpatient treatment with steroids , pain meds, PT. Now s/p Lumbar decompression and fusion -pain management, DVT prophylaxis, PT per primary team -continue aggressive bowel regimen given the amount of narcotics that she is requiring and the rectal bleeding -continue Colace 100 mg twice daily scheduled. Milk of magnesia 1 dose daily scheduled. MiraLAX prn. Rectal Bleeding/Acute blood loss anemia-could very well be internal hemorrhoids bleeding from constipation. There were red clots and some blood mixed in with stool on several occasions witnessed here. Hgb 9.7 preop which is decreased from previous hgb from her post-op ANTONIETA in 06/2016 was 10.3 Pt absolutely refusing colonoscopy in past and future. Declining rectal exam by me or by GI. COuld have bleeding mass or hemorrhoids given it has gone on for about a year. However, Hgb preop for her ANTONIETA in 06/2016 was normal so doubt this is a malignancy, would expect chronic anemia. Pt severely anxious about the whole situation -observe clinically -keep stools soft, prevent constipation -follow fingerstick CBC given severe needle phobia -check CT abd/pel if has continued bleeding -colonoscopy if urgently needed -appreciate GI consult Diabetes mellitus II- HgbA1C 8.1% now up from previous 7.4% -Pharmacy managing -Patient is noncompliant with her Accu-Cheks at home due to needle phobia -ADA diet -SSI and Lantus Hypertension-stable -Hold Benicar for now -Cover Hydralazine 10 mg IV q 6 hr PRN Hyperlipidemia-no issues -Continue Lipitor 20 mg daily Anxiety-exacerbated by medical condition and being in hospital -Continue Lexapro 20 mg daily -Continue Xanax 0.5 mg twice daily as needed, lorazepam prn -consider Psych consult this admission Proph-SCDs, TEDs Dispo-to rehab possibly, PT/OT consults after surgery
[2016-09-28] MEDS: DEXAMETHASONE INJ 6 MG in SYRINGE 0 ML IV SCH ×2 (01:57→10:00)
[2016-09-28] MEDS ORDERED: NURSING DECISION MEDICATION ORDER SCH ×2 (05:30→16:45)
[2016-09-28] MEDS ORDERED: DC PCA ONE (06:00)
[2016-09-28] MEDS ORDERED: HYDROmorphone INJ 1 MG/ML SYR IV PRN (06:00)
[2016-09-28] MEDS ORDERED: NALOXONE HCL 0.4 MG/1 ML VIAL/CARP IV PRN (06:00)
[2016-09-28] MEDS: HYDROmorphone INJ 0.5 MG/0.5 ML SYR IV PRN (06:37)
[2016-09-28] MEDS: ASPIRIN 81 MG ECTAB PO SCH ×2 (08:36→21:23)
[2016-09-28] MEDS: DOCUSATE SODIUM 100 MG CAP PO SCH ×2 (08:36→21:22)
[2016-09-28] MEDS: PANTOprazole SOD 40 MG TAB PO SCH (08:36)
[2016-09-28] MEDS: OXYCODONE HCL IR 5 MG TAB (IMMEDIATE RELEASE) PO PRN ×4 (08:43→23:36)
[2016-09-28] MEDS ORDERED: INSULIN GLARGINE SOLOSTAR 100 UNITS/ML 3 ML PEN SC SCH (09:00)
[2016-09-28] MEDS ORDERED: CEFTRIAXONE SOD INJ 1 GM in DEXTROSE 5% ADD-VANTAGE 50ML 50 ML IV SCH (09:00)
[2016-09-28] MEDS: INSULIN ASPART 100 UNITS/ML 3 ML PEN SC SCH ×4 (09:01→21:00)
[2016-09-28] MEDS: ALPRAZOLAM 0.5 MG TAB PO PRN (09:06)
[2016-09-28] MEDS: MAGNESIUM HYDROXIDE SUSP 30 ML UDC PO SCH ×2 (09:07→21:00)
[2016-09-28] MEDS ORDERED: RXC5 PO (09:07)
[2016-09-28] MEDS: ESCITALOPRAM OXALATE 10 MG TAB PO SCH (09:07)
--- NOTE | 2016-09-28 09:08 | Discharge Instructions ---
Discharge Instructions Date of Service Sep 28, 2016. Admission Reason for Admission: Lumbar Disc Herniation With Radiculopathy Discharge Discharge Diagnosis / Problem: lumbar stenosis Discharge Goals Goal(s): Improve function Activity Recommendations Activity Limitations: per Instructions/Follow-up section . Instructions / Follow-Up Instructions / Follow-Up ACTIVITY RECOMMENDATIONS: SELF CARE INSTRUCTIONS AFTER THORACIC/LUMBAR FUSIONS 1. You may walk to your tolerance. It is good exercise for your legs and back. Expect some back and intermittent leg aches and pains. 2. You may perform "counter-top" level activities (make a sandwich, marin with a project, etc.). 3. No bending or lifting of more than 10 pounds or back twisting of any nature (roll like a log when turning in bed). 4. You may ride in a car for 20-30 minutes at a time. No driving until after your first visit with your doctor. 5. Frequent changes of position and restricting sitting to 30 minutes at a time will help limit the amount of back spasms and stiffness you may experience. 6. You may discontinue the use of ambulatory aids (cane, crutches, etc.) once your strength and confidence allow. 7. You may engineering recruiter the shower and let water strike your incision when you arrive home at least once daily. Do not take a tub bath, sit in a hot tub or go into a swimming pool until after your first recheck in the office. SPECIAL CARE INSTRUCTIONS: VERY IMPORTANT TO READ AND REVIEW A. Your surgical incision has been closed with a cosmetic suture under the skin that will dissolve in about 6 weeks. In 14 days, you can use a pair of clean scissors and cut the suture that is left outside of the skin at the ends of your incision. 1. The small skin tapes can be removed 7 days after surgery if they have not fallen off by that point. 2. You may keep the wound open to air as much as possible to promote healing after post-op day number 5 unless told otherwise by your doctor. 3. If you think the wound looks like it is becoming infected (redness or worsening drainage) and/or you are experiencing fever, chill or worsening back pain and muscle spasms, contact the office so that we may evaluate you as soon as possible. B. Complications are uncommon, but please contact us if you have any signs or symptoms of: 1. wound infection (fever higher than 102.5 degrees F, redness, separation of wound, drainage, or increasing pain from the incision) 2. blood clots in legs (pain, swelling, redness and warmth in legs) 3. urinary tract infection (fever higher than 102.5 degrees F, burning upon urination or increased frequency of urination) 4. nerve problems (inability to walk on your toes or heels, numbness, loss of bowel or bladder control) 5. any other symptoms that concern you C. Please call the office at if you have any concerns or questions about your operation or recovery. D. No smoking! Smoking drastically decreases the chance of a solid fusion. E. Do not take any anti-inflammatory medications (Indocin, Advil, Motrin, Aspirin, Naprosyn, etc.) as these may inhibit the chance of a solid fusion. Tylenol is okay to take for pain. MANAGING PAIN AFTER SPINAL SURGERY 1. Narcotic medication is intended for short-term use and will be provided for surgical pain. Surgical pain usually lasts for a period of 4-6 weeks. Narcotic medication includes Percocet, Vicodin, Darvocet, Tylenol #3 or Lortab. 2. Longer-term pain is more appropriately treated with non-narcotic medication such as Tylenol ES. 3. Muscle spasm is not appropriately treated with narcotics. Muscle relaxers such as Soma, Flexeril or Skelaxin can be used along with Tylenol ES. 4. Remember that we all live with some "aches and pains". This is not unusual or uncommon after an injury or as we get older. a. Back pain is expected and may include muscle spasms for 4 to 6 weeks after surgery. The pain should gradually improve. If the pain worsens for no apparent reason, please contact the office. b. Intermittent leg pain may also be experienced and should not be concerned about unless it worsens for no apparent reason. If so, please contact the office. 5. We will provide appropriate medication within the normal guidelines of their prescribed use. We will also be very cautious and aware of potential abuse and extended duration of patients' medication needs. a. Pain medications are for your comfort and to assist with sleep and rest so that the tissue can heal. They are not provided in order to return to normal activity and should not be used through the day. To do so or worsening pain at night can result from ongoing tissue damage and development of tolerance to the prescribed medicine. 6. Please allow 2-3 days to process refills. Prescriptions will not be mailed but must be picked up at the office. FOLLOW UP VISIT: Keep your scheduled follow-up appointment. Any questions, please call the office at . Current Hospital Diet Patient's current hospital diet: Diabetes Type 2 Diet Discharge Diet Recommended Diet: Regular Diet Procedures Procedures Performed: #1 lumbar decompression medial facetectomies foraminotomies L4 5 2 posterior spinal fusion L4 5. 3 placement of posterior instrumentation L4 5 4 interbody fusion L4 5 #5 placement peek cage L4 5 13 x 22 mm. #6 placement infuse collagen sponge combined Master graft in the posterior lateral gutters. The bone graft in the interbody space. #7 placement of locally harvested morcellized autograft the posterior gutters. Pending Studies Studies pending at discharge: no Laboratory Results Hemoglobin A1c Test 09/26/16 07:28 Range/Units Estimated Average Glucose 186 mg/dl Hemoglobin A1c 8.1 H 4.5-5.6 % Medical Emergencies . Who to Call and When: Medical Emergencies: If at any time you feel your situation is an emergency, please call 911 immediately. . Non-Emergent Contact Non-Emergency issues call your: Primary Care Provider . "Provider Documentation" section prepared by Micheal Vazquez. . VTE Core Measure Inpt VTE Proph given/why not?: Emily Shearer, DAM[facility]
--- NOTE | 2016-09-28 09:24 | Progress Note ---
Progress Note Date of Service Sep 28, 2016. Progress Note Patient complaining mostly of back pain. Left leg symptoms markedly improved. She is tolerating physical therapy. She struggling with significant anxiety. Exam she is good strength testing. ISAC drain decreasing appropriate. Labs are pending. Assessment status post lumbar depression fusion replant this time will continue physical therapy advance her bowel regimen anticipate possible discharge home Friday.
[2016-09-28 10:15] LABS: HEMATOCRIT 22.8 % (37-47); MEAN CELL VOLUME 84.8 fL (80-100); MEAN CORPUSCULAR HGB CONC 30.7 g/dl (32-36); MEAN PLATELET VOLUME 9.8 fL (7.4-10.4); PLATELET COUNT 241 K/uL (130-400); RED BLOOD COUNT 2.69 M/uL (4.2-5.4); WHITE BLOOD COUNT 15.42 K/uL (4.8-10.8)
[2016-09-28] MEDS ORDERED: NURSING VERBAL MED ORDER ONE (12:15)
[2016-09-28] MEDS ORDERED: DEXAMETHASONE 4 MG TAB PO ONE (12:30)
--- NOTE | 2016-09-28 13:23 | GASTROENTEROLOGY PROGRESS NOTE ---
DATE: 09/28/2016 DATE: 09/28/2016 HISTORY OF PRESENT ILLNESS: I had the pleasure of seeing Christine Youngblood at her bedside today. She had a decline in her H&H overnight from 9.7 and 31.4 to 7.0 and 22.8. At the time that I saw the patient, she was in the bathroom and did have bright red bloody bowel movement. She continues to refuse colonoscopy at present and is very hesitant to even undergo a CT scan with oral and IV contrast as she has a strong aversion and anxiety produced by needles. I instructed her that it is imperative that an IV be placed as she has refused at present. This is needed for not only blood transfusions but also for IV contrast for the recommended CT scan. After much discussion with her and her who is at her bedside she agreed. She denies any abdominal pain. She further denies any fevers, chills, hematemesis or abdominal pain. She denies any further complaints. REVIEW OF SYSTEMS: Negative time 10 system review. PHYSICAL EXAMINATION: VITAL SIGNS: Temp 36.8, pulse 97, respirations 18, blood pressure 123/79, pulse ox 95% on room air. GENERAL EXAMINATION: She is awake, cooperative, chronic ill appearing in no acute distress. HEAD: Normocephalic, atraumatic. EYES: Pupils equally round. Extraocular muscles are intact. EARS, NOSE, THROAT: External evaluation of ears and nose are normal. CHEST: Clear to auscultation bilaterally. CARDIOVASCULAR SYSTEM: Regular rate and rhythm. ABDOMEN: Soft, nontender, nondistended. Positive bowel sounds. There is no hepatosplenomegaly or stigmata of chronic liver disease. EXTREMITIES: No clubbing, cyanosis, or edema. LABORATORY STUDIES: From today include H&H of 7.0 and 22.8. Her BUN yesterday was 27 with a creatinine of 0.6. IMPRESSION: This is a 66-year-old female who underwent a lumbar decompression yesterday by Dr. Vazquez. She has had persistent bright red blood per rectum over the last year which has not been worked up. Her H&H declined precipitously over the past 24 hours, both I believe due to her recent surgical intervention as well as bright red blood per rectum. PLAN: The patient is now agreeable to undergo a CT scan of the abdomen and pelvis with p.o. and IV contrast. I told her that this will at least rule out any large colonic lesions that may be causing her symptoms. The differential diagnosis in this patient's bleeding include: 1. Diverticular bleed. 2. Hemorrhoidal bleeding. 3. Colon cancer. 4. AVMs. In that regard, I did tell her that I would still recommend a colonoscopy to definitively rule out the site to definitively evaluate for the source of her GI bleeding. She is hesitant still at this time, though she states that she will readdress this following the findings on her CT abdomen and pelvis which she is agreeable to. I would recommend transfusing her to maintain her H&H above 8 and 24 and I will defer this to the primary team. I did discuss this case in detail with Dr. Lira. I would continue her on Protonix 40 mg p.o. q.a.m. as well as famotidine. I will make further recommendations following the above noted testing. Once again, thanks for allowing me to participate in the care of this patient. If you have any further questions, please do not hesitate in contacting me.
[2016-09-28] MEDS ORDERED: OPTIRAY 320 IV PRN (13:30)
--- NOTE | 2016-09-28 14:03 | Pharmacy Progress Note ---
Glycemic Control Progress Note Date of Service Sep 28, 2016. Scope Glycemic Pharmacist consulted for glycemic control to write orders per [facility] inpatient glycemic control protocol. Objective Accuchecks BSG (last 24hrs): Test 09/27/16 17:11 09/27/16 21:12 09/28/16 08:15 09/28/16 11:00 Bedside Glucose 213 mg/dl (70-90) 253 mg/dl (70-90) 158 mg/dl (70-90) 284 mg/dl HbA1c: Test 09/26/16 07:28 Hemoglobin A1c 8.1 % (4.5-5.6) H Recent Pertinent Medications The patient is currently receiving: * Basal insulin: Lantus SQ BID - dosing based on BSG for steroid induced hyperglycemia post-op * Correctional Insulin: Novolog Correction per scale ACHS Goal Range: Low 110 mg/dL - High 140 mg/dL Correction Factor: 20 mg/dL/unit * Prandial insulin: Per carb ratio of 1 unit per 6 grams CHO consumed * Oral Agents: on hold for admission Outpatient Anti-Diabetic Meds Oral Agents Basal Insulin Assessment & Plan ASSESSMENT: * See progress note from 09/27/16 for more background info, in short: * Pt receiving SQ basal bolus insulin regimen for hyperglycemia secondary to baseline DM (outpatient regimen on hold),stress/infection, recent surgery, steroids * Patient is currently receiving an average of 55 units of insulin per day with poor control * BSGs ranging 158 - 284 mg/dl over the past 24hrs * Changes needed to insulin regimen: * AM Fasting BSG = 158 mg/dl. This is above goal range for patient based on inpatient targets and co-morbidities. Therefore Basal insulin needs increased. Last dose of DXM will be this afternoon. Expect hyperglycemic effects to last ~ 24hrs after last dose. Additionally, A1c is elevated therefore increased basal insulin may be warranted at baseline. * Post-prandial BSGs are elevated/BSGs rise throughout the day therefore need to tighten CF/CR * Additional notes / comments: Will start to taper insulin regimen 09/29/16 once steroid effects diminished. Titrate insulin doses based on BSG trends. PLAN FOR INPATIENT GLYCEMIC CONTROL: * Oral Agents * Continue to hold Invokana as this is non-formulary * OK to resume Januvia since this has a low likelihood of causing hypo and PO intake adequate * Basal insulin * Additional dose of Lantus tonight (0, 8, 15 units) based on BSG/degree of hyperglycemia * Most likely resume outpatient dosing tomorrow AM * Bolus insulin : tighten parameters * NovoLog per scale ACHS or Q6hrs while NPO * Goal Range: Low 110 mg/dL - High 140 mg/dL * Correction Factor: 15 mg/dL/unit * Nutritional / Prandial insulin per carb ratio of 1 unit per 4 grams CHO consumed * Please note that the plan above was derived based on current level of insulin resistance and hospital stress. These recommendations are appropriate for inpatient admission only. Plan of care upon discharge will need to be reassessed to avoid potential outpatient hypo/hyperglycemia. Thank you.
--- NOTE | 2016-09-28 16:17 | DIAGNOSTIC IMAGING REPORT ---
CT ABD/PELVIS IV AND ORAL CONT CLINICAL HISTORY: GI bleed BACK PAIN COMPARISON STUDY: None. TECHNIQUE: Following the IV administration of 119 mL of Optiray-320, CT scan of the abdomen and pelvis was performed from the lung bases to the proximal femurs. Images are reviewed in the axial, sagittal, and coronal planes. IV contrast was administered without complication. A dose lowering technique was utilized adhering to the principles of ALARA. CT DOSE: 1308.77 mGy.cm FINDINGS: Lower chest: The heart is normal in size and configuration, without pericardial effusion. The lung bases and pleural spaces are clear. Liver: There are multiple hepatic hypodensities, most consistent with cysts. The largest is located within the left lobe measuring 46 mm. Gallbladder: Unremarkable. Spleen: Normal in size and attenuation. Pancreas: Unremarkable. Adrenal glands: Unremarkable. Kidneys: There is a 6 mm nonobstructing mid pole right renal calculus. There is minimal left-sided perinephric fluid. No ureteral or bladder calculi are visualized. Bowel: There are no transition zones to indicate bowel obstruction. The appendix appears normal. There is colonic diverticulosis. There are no acute peridiverticular inflammatory changes. Peritoneum: There is no intraperitoneal free air or abdominal ascites. Vasculature: The abdominal aorta is normal in course and caliber. Adenopathy: None. Pelvic viscera: There is air within the bladder, likely iatrogenic Skeletal structures: There are postsurgical changes of a total right hip arthroplasty. There are postsurgical changes present within the lumbar spine. There is evidence for an L4-5 discectomy and interbody fusion with posterior pedicle screw fixation. Air and fluid within the posterior soft tissues is likely postsurgical. IMPRESSION: 1. No evidence of bowel obstruction. No evidence of free air 2. Normal appendix 3. Diverticulosis. No evidence of acute diverticulitis 4. Air within the bladder likely iatrogenic 5. Hepatic cysts 6. Postsurgical changes within the lumbar spine 7. Nonobstructing right renal calculus Electronically signed by: Jesus Lopez M.D. 09/28/2016 4:16 PM Dictated Date/Time: 09/28/2016 4:10 PM
[2016-09-28] MEDS ORDERED: COUGH DROP (SUGAR FREE) LOZ 24 LOZ/1 BOX PO PRN (17:00)
[2016-09-28] MEDS ORDERED: INSULIN GLARGINE SOLOSTAR 100 UNITS/ML 3 ML PEN SC ONE (17:45)
[2016-09-28] MEDS: ATORVASTATIN 20 MG TAB PO SCH (21:00)
[2016-09-28] MEDS: DOCUSATE SODIUM/SENNA 50/8.6MG TAB PO SCH (21:00)
--- NOTE | 2016-09-28 23:34 | Hospitalist Progress Note ---
Hospitalist Progress Note Date of Service Sep 28, 2016. Subjective Pt evaluation today including: conversation w/ patient, conversation w/ family , lab review, conversation w/ product marketing consultant (GI), review of inpatient medication list Is ambulating the halls today. Hgb did drop though to 7.0. She lost her PIV site. SHe is extremely anxious, mood is sad, very worried about her rectal bleeding, about getting stuck with needles. When offered a Psych consult, she cried more and said "No! That will only make things worse!" She is agreeable to a PICC line so she will not have to have many needle sticks and has already lost 3 IV sites in 2 days. She is agreeable to CT scan abd/pel and to blood transfusion. Denies CP or SOB, no abd pain. She had more rectal bleeding this AM as per RN All Other Systems: Reviewed and Negative Objective Vital Signs Date Time Temp Pulse Resp B/P (MAP) Pulse Ox O2 Delivery O2 Flow Rate FiO2 09/28/16 11:59 36.8 97 18 123/79 (94) 95 Room Air 09/28/16 07:36 37.1 79 18 124/74 (91) 93 Room Air 09/28/16 03:21 37.0 90 16 127/75 (92) 96 Room Air 09/27/16 23:46 Room Air 09/27/16 22:53 37.2 92 16 132/81 (98) 93 Room Air 09/27/16 20:20 Room Air 09/27/16 19:21 36.8 97 18 119/68 (85) 92 Room Air 09/27/16 15:35 Room Air 09/27/16 15:21 37.1 99 16 123/73 (90) 92 Room Air 09/27/16 13:51 36.7 105 19 114/72 (86) 97 Room Air 09/27/16 13:09 Room Air 09/27/16 12:45 37.1 101 18 138/88 (105) 96 Room Air 09/27/16 12:22 103 16 116/73 (87) 93 Room Air Physical Exam General Appearance: WD/WN, + moderate distress (anxiety), + obese Eyes: normal inspection, sclerae normal ENT: hearing grossly normal Neck: trachea midline Respiratory/Chest: lungs clear, normal breath sounds, no respiratory distress, no accessory muscle use Cardiovascular: regular rate, rhythm, no edema, no gallop, no murmur Abdomen: normal bowel sounds, non tender, soft Extremities: non-tender, normal inspection, no pedal edema, no calf tenderness Neurologic/Psychiatric: alert, + depressed affect (and anxious, tearful) Skin: warm/dry, no rash, + pallor Laboratory Results Last 24 Hours Test 09/27/16 17:11 09/27/16 21:12 09/28/16 08:15 09/28/16 10:06 Bedside Glucose 213 mg/dl 253 mg/dl 158 mg/dl White Blood Count 15.42 K/uL Red Blood Count 2.69 M/uL Hemoglobin 7.0 g/dL Hematocrit 22.8 % Mean Corpuscular Volume 84.8 fL Mean Corpuscular Hemoglobin 26.0 pg Mean Corpuscular Hemoglobin Concent 30.7 g/dl RDW Standard Deviation 47.6 fL RDW Coefficient of Variation 15.4 % Platelet Count 241 K/uL Mean Platelet Volume 9.[address] ab/pel images reviewed-hepatic cysts, diverticulosis Assessment and Plan This patient is a 66-year-old female with a history of DMII, hypertension, hyperlipidemia, and anxiety that presents with intractable left sided lumbar radiculopathy that is failing medical management. She does have severe spinal stenosis. Lumbar radiculopathy, intractable pain-failed outpatient treatment with steroids , pain meds, PT. Now s/p Lumbar decompression and fusion 09/27 -pain management, DVT prophylaxis, PT per primary team -continue aggressive bowel regimen given the amount of narcotics that she is requiring and the rectal bleeding -continue Colace 100 mg twice daily scheduled. Milk of magnesia 1 dose daily scheduled. MiraLAX prn. -ambulation, PT eval Rectal Bleeding/Acute blood loss anemia-could be internal hemorrhoids bleeding from constipation vs diverticular bleed. There were red clots and some blood mixed in with stool on several occasions witnessed here. Hgb 9.7 preop which is decreased from previous hgb from her post-op ANTONIETA in 06/2016 was 10.3---> Hgb today 7.0 and had further rectal bleeding this AM. Pt very anxious about possibility of colonoscopy but will do it if necessary. Declining rectal exam by me or by GI. CT abd/pel with diverticulosis, hepatic most likely cysts, no clear cause of bleeding -transfuse 2 units pRBCs today -observe clinically -Colonoscopy plan for as an outpat or more urgently inpt if H/H drop or has increased bleeding here -keep stools soft, prevent constipation -follow fingerstick CBC given severe needle phobia -appreciate GI consult Hematuria, UTI-Ur cx growing E. coli -Rocephin given and then will switch to po keflex tomorrow -follow Ur cx Diabetes mellitus II- HgbA1C 8.1% now up from previous 7.4% -Pharmacy managing -Patient is noncompliant with her Accu-Cheks at home due to needle phobia -ADA diet -SSI and Lantus Hypertension-stable -Hold Benicar for now -Cover Hydralazine 10 mg IV q 6 hr PRN Hyperlipidemia-no issues -Continue Lipitor 20 mg daily Anxiety-exacerbated by medical condition and being in hospital -Continue Lexapro 20 mg daily -Continue Xanax 0.5 mg twice daily as needed, lorazepam prn -pt declines Psych consult this admission -PICC placed to help avoid multiple needle sticks for blood draws and loss of IV access Proph-SCDs, TEDs Dispo-to rehab possibly, PT/OT consults
[2016-09-29] MEDS: OXYCODONE HCL IR 5 MG TAB (IMMEDIATE RELEASE) PO PRN ×4 (03:44→20:44)
[2016-09-29 06:36] LABS: HEMATOCRIT 28.7 % (37-47); MEAN CELL VOLUME 83.7 fL (80-100); MEAN CORPUSCULAR HEMOGLOBIN 26.2 pg (25-34); MEAN CORPUSCULAR HGB CONC 31.4 g/dl (32-36); MEAN PLATELET VOLUME 10.5 fL (7.4-10.4); PLATELET COUNT 230 K/uL (130-400); RED BLOOD COUNT 3.43 M/uL (4.2-5.4); WHITE BLOOD COUNT 14.61 K/uL (4.8-10.8)
[2016-09-29 07:30] VITALS: BP 133/76; PULSE 59; TEMP 36.7; O2SAT 94
[2016-09-29] MEDS: ALPRAZOLAM 0.5 MG TAB PO PRN ×2 (07:47→20:55)
--- NOTE | 2016-09-29 08:43 | Orthopedic Progress Note ---
Orthopedic Progress Note Date of Service Sep 29, 2016. Subjective Post OP Day: 2 Reports: feeling well Additional Notes: Christine POD 2 lumbar decompression and fusion. She reports her left leg pain has resolved. Only complaint is of back pain specifically when she changes positions. She is currently also undergoing workup for acute blood loss anemia/ drop in hemoglobin. ISAC drain output was 30 mL last shift. She has had a bowel movement. History and physical therapy she examined 300 feet. She is still noting rectal bleeding. He also has urinary tract infection. She appears to be on Keflex for this. She is extremely hesitant about GI recommendation of a colonoscopy. H&H is 9.0 and 28.7 respectively. Objective calves soft nontender, N/V intact, capillary refill less than 2 sec., dressing C /D/I, toes mobile Date Time Temp Pulse Resp B/P (MAP) Pulse Ox O2 Delivery O2 Flow Rate FiO2 09/29/16 08:16 Room Air 09/29/16 07:30 36.7 59 17 133/76 (95) 94 Room Air 09/28/16 23:25 Room Air 09/28/16 23:15 36.7 58 12 149/79 96 09/28/16 22:50 37.1 70 16 133/74 94 09/28/16 21:20 36.8 76 16 163/88 96 09/28/16 21:05 36.7 73 16 136/71 94 09/28/16 21:05 36.7 73 16 136/71 94 09/28/16 21:00 Room Air 09/28/16 20:50 36.7 69 18 155/79 94 09/28/16 20:12 37.0 72 15 133/71 94 09/28/16 18:25 36.7 97 16 150/75 95 09/28/16 17:55 36.7 82 16 125/71 95 09/28/16 17:40 37.0 79 16 134/73 92 09/28/16 17:06 36.6 79 18 129/69 96 09/28/16 16:36 36.7 83 16 152/72 (98) 95 Room Air 09/28/16 15:30 Room Air 09/28/16 11:59 36.8 97 18 123/79 (94) 95 Room Air Laboratory Results 24 Hours: Test 09/28/16 10:06 09/29/16 06:18 Hematocrit 22.8 % 28.7 % Hemoglobin 7.0 g/dL 9.0 g/dL Additional Notes: Patient Name: CHRISTINE PALMA Unit Number: [id number] Dictated: 09/28/161609 Transcribed: 09/28/161609 ARG Printed Date/Time: [~ rep prt dt]/[~ rep prt tm] [~ rep ct labl] - [~ rep ct ivnm] [facility] [place] [address] Dictated: 09/28/161609 Transcribed: 09/28/161609 ARG Printed Date/Time: [~ rep prt dt]/[~ rep prt tm] [~ rep ct labl] - [~ rep ct ivnm] Patient: CHRISTINE PALMA Address1: [address] [facility] Rec: [id number] Address2: Acct ID: [id number] [facility] Zip: [place] [address] Date: 1950 Sex: F Room/Bed: [facility] Ref Phy: Bryanna Moore PA-C SC: PilyMSN Att Phy: Micheal Vazquez D.O. Report #: [id number] Ronna Phy: Bryanna Moore PA-C Test: APW Admit Phy: Micheal Vazquez D.O. Substitute Bus Driver: CEE Interpreting Phy: Jesus Lopez M.D. Diagnosis: LUMBAR DISC HERNIATION WITH RADICULOPATHY Ordering Phy: Horacio Liang D.O. Service Date: 09/28/16 Admit Date: 09/25/16 MNE: PWRSCRIBE CONF: DICTATED BY: Jesus Lopez M.D.]] CC: Micheal Vazquez D.O. Bennett, Crista M. PA-C Case, Dustin G., D.O. Endcc: [~ rep ct add3]] CT ABD/PELVIS IV AND ORAL CONT CLINICAL HISTORY: GI bleed BACK PAIN COMPARISON STUDY: None. TECHNIQUE: Following the IV administration of 119 mL of Optiray-320, CT scan of the abdomen and pelvis was performed from the lung bases to the proximal femurs. Images are reviewed in the axial, sagittal, and coronal planes. IV contrast was administered without complication. A dose lowering technique was utilized adhering to the principles of ALARA. CT DOSE: 1308.77 mGy.cm FINDINGS: Lower chest: The heart is normal in size and configuration, without pericardial effusion. The lung bases and pleural spaces are clear. Liver: There are multiple hepatic hypodensities, most consistent with cysts. The largest is located within the left lobe measuring 46 mm. Gallbladder: Unremarkable. Spleen: Normal in size and attenuation. Pancreas: Unremarkable. Adrenal glands: Unremarkable. Kidneys: There is a 6 mm nonobstructing mid pole right renal calculus. There is minimal left-sided perinephric fluid. No ureteral or bladder calculi are visualized. Bowel: There are no transition zones to indicate bowel obstruction. The appendix appears normal. There is colonic diverticulosis. There are no acute peridiverticular inflammatory changes. Peritoneum: There is no intraperitoneal free air or abdominal ascites. Vasculature: The abdominal aorta is normal in course and caliber. Adenopathy: None. Pelvic viscera: There is air within the bladder, likely iatrogenic Skeletal structures: There are postsurgical changes of a total right hip arthroplasty. There are postsurgical changes present within the lumbar spine. There is evidence for an L4-5 discectomy and interbody fusion with posterior pedicle screw fixation. Air and fluid within the posterior soft tissues is likely postsurgical. IMPRESSION: 1. No evidence of bowel obstruction. No evidence of free air 2. Normal appendix 3. Diverticulosis. No evidence of acute diverticulitis 4. Air within the bladder likely iatrogenic 5. Hepatic cysts 6. Postsurgical changes within the lumbar spine 7. Nonobstructing right renal calculus Electronically signed by: Jesus Lopez M.D. 09/28/2016 4:16 PM Dictated Date/Time: 09/28/2016 4:10 PM The status of this report is Signed. Draft = Not yet reviewed or approved by Radiologist. Signed = Reviewed and approved by Radiologist. <AttendingPhy>Micheal Vazquez D.O.</AttendingPhy> <FamilyPhy>Bryanna Moore PA-C</FamilyPhy> <PrimaryPhy>Bryanna Moore PA-C</PrimaryPhy> <UnitNumber> [id number]</UnitNumber> <VisitNumber>[id number]</VisitNumber> <PatientName> CHRISTINE PALMA</PatientName> <DateOfBirth>1950</DateOfBirth> <Location> C.MSN</Location> <ServiceDate></ServiceDate> <MNE>ESINDI</MNE> <OrderingPhy>Horacio Liang D.O.</OrderingPhy> <OrderingPhyMNE>f rep ord dr rangel</OrderingPhyMNE> <DictatingPhyMNE>f rep dict dr rangel</DictatingPhyMNE> <CCListMNE>f rep ct laynee</ CCListMNE> <AdmittingPhyMNE>f pt admit dr rangel</AdmittingPhyMNE> <AttendingPhyMNE >f pt attend dr rangel</AttendingPhyMNE> <ConsultingPhyMNE>f pt consult dr rangel</ConsultingPhyMNE> <FamilyPhyMNE>f pt fam dr rangel</FamilyPhyMNE> <OtherPhyMNE>f pt other dr rangel</OtherPhyMNE> < PrimaryPhyMNE>f pt prim care dr rangel</PrimaryPhyMNE> <ReferringPhyMNE>f pt referring dr rangel</ReferringPhyMNE> Assessment & Plan Assessment: Postoperative day 2 lumbar decompression fusion. Secondary diagnosis is acute blood loss anemia Plan: She'll continue physical therapy today. She denies PICC line for IV access and blood draws. Again I have discussed the patient as well as her importance of undergoing colonoscopy. As long as H/H is stable this can be performed on an outpatient basis. They're going to consider this. Maintain ISAC drain until discharge. I anticipate this will possibly be tomorrow. She is quite anxious to return home. Continue with pain control. Continue with DVT prophylaxis in the form of teds SCDs. Appreciate GI consult.
[2016-09-29] MEDS: DOCUSATE SODIUM 100 MG CAP PO SCH ×2 (08:55→20:56)
[2016-09-29] MEDS: PANTOprazole SOD 40 MG TAB PO SCH (08:55)
[2016-09-29] MEDS: ASPIRIN 81 MG ECTAB PO SCH ×2 (08:55→20:56)
[2016-09-29] MEDS: OLMESARTAN MEDOXOMIL 20 MG TAB PO SCH (08:55)
[2016-09-29] MEDS: HYDROmorphone INJ 0.5 MG/0.5 ML SYR IV PRN ×2 (08:56→13:18)
[2016-09-29] MEDS: CEPHALEXIN MONOHYDRATE 500 MG CAP PO SCH ×2 (08:56→20:56)
[2016-09-29] MEDS: MAGNESIUM HYDROXIDE SUSP 30 ML UDC PO SCH ×2 (08:56→20:55)
[2016-09-29] MEDS: INSULIN ASPART 100 UNITS/ML 3 ML PEN SC SCH ×4 (08:58→20:54)
[2016-09-29] MEDS: ESCITALOPRAM OXALATE 10 MG TAB PO SCH (09:00)
[2016-09-29] MEDS ORDERED: INSULIN GLARGINE SOLOSTAR 100 UNITS/ML 3 ML PEN SC SCH (09:00)
[2016-09-29 10:55] VITALS: BP 126/66; PULSE 80; O2SAT 97
--- NOTE | 2016-09-29 11:12 | Pharmacy Progress Note ---
Glycemic Control Progress Note Date of Service Sep 29, 2016. Scope Glycemic Pharmacist consulted for glycemic control to write orders per [facility] inpatient glycemic control protocol. Objective Accuchecks BSG (last 24hrs): Test 09/28/16 12:05 09/28/16 16:50 09/28/16 21:23 09/29/16 07:59 Bedside Glucose 284 mg/dl (70-90) 138 mg/dl (70-90) 142 mg/dl (70-90) 104 mg/dl (70-90) HbA1c: Test 09/26/16 07:28 Hemoglobin A1c 8.1 % (4.5-5.6) H Recent Pertinent Medications The patient is currently receiving: * Basal insulin: Lantus 15 units SQ daily * Correctional Insulin: Novolog Correction per scale ACHS Goal Range: Low 110 mg/dL - High 140 mg/dL Correction Factor: 20 mg/dL/unit * Prandial insulin: Per carb ratio of 1 unit per 6 grams CHO consumed * Oral Agents: on hold for admission Outpatient Anti-Diabetic Meds Oral Agents Basal Insulin Assessment & Plan ASSESSMENT: * See progress note from 09/27/16 for more background info, in short: * Pt receiving SQ basal bolus insulin regimen for hyperglycemia secondary to baseline DM (outpatient regimen on hold),stress/infection, recent surgery, steroids * Patient is currently receiving an average of 59 units of insulin per day with poor control * BSGs ranging 138 - 284 mg/dl over the past 24hrs * Changes needed to insulin regimen: * AM Fasting BSG = 104 mg/dl. This is in goal range for patient based on inpatient targets and co-morbidities. Last dose of DXM was yesterday mid morning , hyperglycemic effects should be minimzed at this point. Resuming outpatient basal insulin dosing today. * Post-prandial BSGs are in range since tightening CF/CR ysterday. Expect this aggressive coverage will not be needed w/o DXM on board. Pt to d/c tomorrow, will start resuming outpatient antidiabetic medications in preparation for discharge. PLAN FOR INPATIENT GLYCEMIC CONTROL: Start tapering insulin regimen towards outpatient doses. Resume stocked/formulary outpatient antidiabetic medications. * Oral Agents * Continue to hold Invokana as this is non-formulary * OK to resume Januvia since this has a low likelihood of causing hypo and PO intake adequate. Will start today * Basal insulin * Resume outpatient dosing of 15 units SQ daily in AM. * Bolus insulin : loosen parameters now that DXM therapy finished and starting oral agents * NovoLog per scale ACHS or Q6hrs while NPO * Goal Range: Low 110 mg/dL - High 140 mg/dL * Correction Factor: 25 mg/dL/unit * Nutritional / Prandial insulin per carb ratio of 1 unit per 9 grams CHO consumed * Please note that the plan above was derived based on current level of insulin resistance and hospital stress. These recommendations are appropriate for inpatient admission only. Plan of care upon discharge will need to be reassessed to avoid potential outpatient hypo/hyperglycemia. Thank you.
--- NOTE | 2016-09-29 11:20 | PROGRESS NOTE ---
DATE: 09/29/2016 SUBJECTIVE: I had the pleasure of seeing Christine Youngblood her bedside today. She was feeling much better. She was transfused 2 units packed red blood cells Yesterday. Her H&H is appropriately responded and is 9.0 and 28.7 today. We discussed the findings of her CT scan of her abdomen and pelvis from yesterday, which showed evidence of diverticulosis; however, no other findings including no evidence of bowel obstruction or colonic lesion, which could be causing her bright red blood per rectum. She did have a small amount of bright red blood per rectum today with passage of gas, though denies any large bloody bowel movements as she was having previously. She did tolerate p.o. intake. She does complain of some back pain, which she describes as 3-4/10 in intensity, nonradiating, alleviated with her pain medications and she describes it as a "normal expected postop pain." She denies any other complaints at this time. PHYSICAL EXAMINATION: VITAL SIGNS: Temp 36.7, pulse 59, respirations 17, blood pressure 133/76, and pulse ox 94% on room air. GENERAL: She is awake, cooperative, in no acute distress. CHEST: Clear to auscultation bilaterally. CARDIOVASCULAR SYSTEM: Regular rate and rhythm. ABDOMEN: Soft, nontender, and nondistended. Positive bowel sounds. EXTREMITIES: No clubbing, cyanosis, or edema. LABORATORY STUDIES: From today include the H&H of 9.0 and 28.7. IMPRESSION: A 66-year-old female, status post lumbar decompression with a history of constipation, bright red blood per rectum and acute blood loss anemia. PLAN: At the present time, the patient would like to hold off on any invasive testing until she recovers from her back surgery. I think this is appropriate at this time and she will be scheduled through our office to undergo colonoscopy in the next 3 months. I did, however, inform her that if she continues to have bright red blood per rectum acutely and does not have cessation of this, colonoscopy will need to be performed much sooner. She was in agreement with this plan. I would recommend that she be continued on her bowel regimen that includes milk of magnesia and MiraLax as well as a stool softener and I would limit the use of narcotic analgesics as this can worsen her symptoms. Once again, thanks for allowing me to participate in the care of this patient. If you have any further questions, please do not hesitate in contacting me.
[2016-09-29] MEDS: POLYETHYLENE (MIRALAX) 17 GM PACK PO SCH ×3 (12:30→23:12)
[2016-09-29] MEDS: SITAGLIPTIN 100 MG TAB PO SCH (12:38)
--- NOTE | 2016-09-29 13:53 | Hospitalist Progress Note ---
Hospitalist Progress Note Date of Service Sep 29, 2016. Subjective Pt evaluation today including: conversation w/ patient, conversation w/ family Pt much less anxious today, received PICC line yesterday and actually did quite well with it I'm told. She was happy to have her blood drawn through the [facility] today. Hgb at 9.0 which is perfect after receiving 2 units PRBCs yesterday for hgb 7.0 Is having BMs with small amount BRBPR. Some lower back pain but no more leg/ radicular pain. All Other Systems: Reviewed and Negative Objective Vital Signs Date Time Temp Pulse Resp B/P (MAP) Pulse Ox O2 Delivery O2 Flow Rate FiO2 09/29/16 08:16 Room Air 09/29/16 07:30 36.7 59 17 133/76 (95) 94 Room Air 09/28/16 23:25 Room Air 09/28/16 23:15 36.7 58 12 149/79 96 09/28/16 22:50 37.1 70 16 133/74 94 09/28/16 21:20 36.8 76 16 163/88 96 09/28/16 21:05 36.7 73 16 136/71 94 09/28/16 21:05 36.7 73 16 136/71 94 09/28/16 21:00 Room Air 09/28/16 20:50 36.7 69 18 155/79 94 09/28/16 20:12 37.0 72 15 133/71 94 09/28/16 18:25 36.7 97 16 150/75 95 09/28/16 17:55 36.7 82 16 125/71 95 09/28/16 17:40 37.0 79 16 134/73 92 09/28/16 17:06 36.6 79 18 129/69 96 09/28/16 16:36 36.7 83 16 152/72 (98) 95 Room Air 09/28/16 15:30 Room Air Physical Exam General Appearance: WD/WN, no apparent distress, + obese Eyes: normal inspection, sclerae normal ENT: hearing grossly normal Neck: trachea midline Respiratory/Chest: lungs clear, normal breath sounds, no respiratory distress, no accessory muscle use Cardiovascular: regular rate, rhythm, no edema, no gallop, no murmur Abdomen: normal bowel sounds, non tender, soft Extremities: non-tender, normal inspection, no pedal edema, no calf tenderness , + pertinent finding (able to stand up from chair unassisted, hold walker) Neurologic/Psychiatric: alert Skin: normal color, warm/dry, no rash, + pertinent finding (dressing over lower back is c/d/i; RUE PICC with scant dried blood surrounding insertion site , no erythema) Laboratory Results Last 24 Hours Test 09/28/16 16:50 09/28/16 21:23 09/29/16 06:18 09/29/16 07:59 Bedside Glucose 138 mg/dl 142 mg/dl 104 mg/dl White Blood Count 14.61 K/uL Red Blood Count 3.43 M/uL Hemoglobin 9.0 g/dL Hematocrit 28.7 % Mean Corpuscular Volume 83.7 fL Mean Corpuscular Hemoglobin 26.2 pg Mean Corpuscular Hemoglobin Concent 31.4 g/dl RDW Standard Deviation 47.2 fL RDW Coefficient of Variation 15.4 % Platelet Count 230 K/uL Mean Platelet Volume 10.5 fL Test 09/29/16 11:55 Bedside Glucose 221 mg/dl Assessment and Plan This patient is a 66-year-old female with a history of DMII, hypertension, hyperlipidemia, and anxiety that presents with intractable left sided lumbar radiculopathy that is failing medical management. She does have severe spinal stenosis. Lumbar radiculopathy, intractable pain-failed outpatient treatment with steroids , pain meds, PT. Now s/p Lumbar decompression and fusion 09/27-doing very well post-op, no further radicular pain, just incisional lower back pain -pain management, DVT prophylaxis with SCDs, PT per primary team -continue aggressive bowel regimen given the amount of narcotics that she is requiring and the rectal bleeding -continue Colace 100 mg twice daily scheduled. Milk of magnesia 1 dose daily scheduled. MiraLAX prn. -ambulation, PT eval--> plan for home hopefully Mon after ISAC drain removed Rectal Bleeding/Acute blood loss anemia-could be internal hemorrhoids bleeding from constipation vs diverticular bleed. There were red clots and some blood mixed in with stool on several occasions witnessed here. Hgb 9.7 preop which is decreased from previous hgb from her post-op ANTONIETA in 06/2016 was 10.3---> Hgb down to 7.0 and had further rectal bleeding on POD#1, received 2 units PRBCs. Today hgb 9.0 which is excellent and only scant BRBPR Pt very anxious about possibility of colonoscopy but will do it if necessary. Declining rectal exam by me or by GI. CT abd/pel with diverticulosis, hepatic most likely cysts, no clear cause of bleeding -observe clinically -Colonoscopy plan for as an outpat within 3 months (pt says "I'll think about it ") or more urgently inpt if H/H drop or has increased bleeding here -keep stools soft, prevent constipation -check CBC tomorrow -appreciate GI consult Hematuria, UTI POA-Ur cx growing E. 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
[2016-09-29 15:00] VITALS: BP 116/68; PULSE 68; TEMP 36.4; O2SAT 96
[2016-09-29] MEDS ORDERED: INSULIN GLARGINE SOLOSTAR 100 UNITS/ML 3 ML PEN SC ONE (17:45)
[2016-09-29] MEDS: ATORVASTATIN 20 MG TAB PO SCH (20:48)
[2016-09-29] MEDS: DOCUSATE SODIUM/SENNA 50/8.6MG TAB PO SCH (20:49)
[2016-09-29 22:50] VITALS: BP 127/68; PULSE 77; TEMP 36.9; O2SAT 97
[2016-09-30] MEDS: OXYCODONE HCL IR 5 MG TAB (IMMEDIATE RELEASE) PO PRN ×2 (03:31→07:31)
[2016-09-30] MEDS: POLYETHYLENE (MIRALAX) 17 GM PACK PO SCH (06:14)
[2016-09-30 06:30] VITALS: BP 139/71; PULSE 67; TEMP 36.7; O2SAT 98
[2016-09-30 06:33] LABS: HEMATOCRIT 27.6 % (37-47); MEAN CELL VOLUME 85.2 fL (80-100); MEAN CORPUSCULAR HEMOGLOBIN 27.5 pg (25-34); MEAN CORPUSCULAR HGB CONC 32.2 g/dl (32-36); MEAN PLATELET VOLUME 10.4 fL (7.4-10.4); PLATELET COUNT 231 K/uL (130-400); RED BLOOD COUNT 3.24 M/uL (4.2-5.4); WHITE BLOOD COUNT 10.67 K/uL (4.8-10.8)
[2016-09-30 07:08] LABS: CALCIUM 7.6 mg/dl (8.5-10.1); CREATININE 0.43 mg/dl (0.60-1.20); MAGNESIUM 2.3 mg/dl (1.8-2.4); POTASSIUM 3.8 mmol/L (3.5-5.1)
[2016-09-30] MEDS: DOCUSATE SODIUM 100 MG CAP PO SCH (08:37)
[2016-09-30] MEDS: ESCITALOPRAM OXALATE 10 MG TAB PO SCH (08:38)
[2016-09-30] MEDS: INSULIN ASPART 100 UNITS/ML 3 ML PEN SC SCH (08:44)
[2016-09-30] MEDS: ALPRAZOLAM 0.5 MG TAB PO PRN (08:55)
[2016-09-30] MEDS: OLMESARTAN MEDOXOMIL 20 MG TAB PO SCH (08:58)
[2016-09-30] MEDS: PANTOprazole SOD 40 MG TAB PO SCH (08:59)
[2016-09-30] MEDS: SITAGLIPTIN 100 MG TAB PO SCH (08:59)
[2016-09-30] MEDS: ASPIRIN 81 MG ECTAB PO SCH (08:59)
[2016-09-30] MEDS: CEPHALEXIN MONOHYDRATE 500 MG CAP PO SCH (08:59)
[2016-09-30] MEDS: MAGNESIUM HYDROXIDE SUSP 30 ML UDC PO SCH (09:00)
[2016-09-30] MEDS ORDERED: INSULIN GLARGINE SOLOSTAR 100 UNITS/ML 3 ML PEN SC SCH (09:00)
[2016-09-30] MEDS ORDERED: KFL500 PO (09:31)
[2016-09-30 11:15] VITALS: BP 139/71; PULSE 67; TEMP 36.7; O2SAT 98
[2016-09-30] MEDS: HYDROmorphone INJ 0.5 MG/0.5 ML SYR IV PRN (11:25)
--- NOTE | 2016-09-30 12:12 | Discharge Summary ---
Orthopedic Discharge Summary Admission Date/Reason Sep 25, 2016 at 14:45 Lumbar Disc Herniation With Radiculopathy. Discharge Date/Disposition Sep 30, 2016 Home Diagnosis Principal Diagnosis: Lumbar spinal stenosis with herniated nucleus pulposus Admission Physical Exam As per Admitting History & Physical. Hospital Course Patient was admitted for extreme back pain and and a disc herniation with pre- existing spinal stenosis identified. Surgically she underwent lumbar decompression fusion tolerated this well and was taken to the orthopedic 4 postop we. Postoperative day #1 she was up in amatory leg symptoms improved she progressed to postoperative day #2 and subsequently impressive day #3 she was discharged home discharge orders and instructions can be found on the chart for further review. Discharge Instructions Please refer to the electronic Patient Visit Report (Discharge Instructions) for additional information.
--- NOTE | 2016-09-30 12:30 | Pharmacy Progress Note ---
Glycemic Control Progress Note Date of Service Sep 30, 2016. Scope Glycemic Pharmacist consulted for glycemic control to write orders per [facility] inpatient glycemic control protocol. Objective Accuchecks BSG (last 24hrs): Test 09/29/16 11:55 09/29/16 16:49 09/29/16 20:44 09/30/16 06:10 Bedside Glucose 221 mg/dl (70-90) 160 mg/dl (70-90) 225 mg/dl (70-90) Random Glucose 79 mg/dl (70-99) Test 09/30/16 06:37 09/30/16 07:04 Bedside Glucose 72 mg/dl (70-90) 102 mg/dl (70-90) HbA1c: Test 09/26/16 07:28 Hemoglobin A1c 8.1 % (4.5-5.6) H Recent Pertinent Medications Outpatient Anti-diabetic Regimen: * Tresiba 15 units qAM and Invokana 300 mg PO daily Risk Factors for Insulin Resistance: * Infection: PO Keflex 500 mg twice daily * Diet: type 2 diabetic diet Outpatient Anti-Diabetic Meds See above. Assessment & Plan ASSESSMENT: * ADA & AACE recommend a goal blood sugar range 140-180 mg/dl for the majority of critically ill & non-critically ill patients. However, more stringent targets may be selected in individual cases. Will utilize more stringent goal of 110-140mg/dl based on patient age & comorbidities. Additionally, tighter glycemic control is warranted for wound healing. * Ms Youngblood is a 66 y/o F admitted with uncontrolled leg and back pain. She is known to the glycemic service from her hip replacement surgery in June of this year. She underwent surgery on 09/27/2016. She received Dexamethasone intraoperatively and then dexamethasone 6 mg IV every 8 hours x 3 doses. While on steroids, the patient's insulin requirements increased to ~60 units/day. Yesterday, the patient required 56 units of insulin with 23 units of basal and 33 units of bolus. * Today, the patient's fasting blood sugar was 102 mg/dL, similar to yesterday' s 104 mg/dL. (on blood chemistry 79 mg/dL). Lantus was reduced slightly as it appears dexamethasone's effects may be dissipating. Novolog parameters were loosened slightly. PLAN FOR INPATIENT GLYCEMIC CONTROL: * Basal insulin with LANTUS 12 units SQ qAM * Correctional Insulin with NOVOLOG per scale ACHS * Goal Range: Low 110 mg/dL - High 140 mg/dL * Correction Factor: 25 mg/dL/unit * Nutritional / Prandial insulin per carb ratio of 1 unit per 9 grams CHO consumed Recommendations for Discharge * Patient's HbA1C has increased from 7.4% to 8.1% in three months. Recommend titration of Tresiba as an outpatient. Patient may require Novolog with largest meal of the day. * Please note that the plan above was derived based on current level of insulin resistance and hospital stress. These recommendations are appropriate for inpatient admission only. Plan of care upon discharge will need to be reassessed to avoid potential outpatient hypo/hyperglycemia. Thank you.
--- NOTE | 2016-09-30 12:45 | Hospitalist Progress Note ---
Hospitalist Progress Note Date of Service Sep 30, 2016. Subjective Pt evaluation today including: conversation w/ patient, conversation w/ family , physical exam, chart review, lab review, review of studies, conversation w/ python consultant (Dr. Vazquez), review of inpatient medication list Patient seen and evaluated. Discussed plan and was present when Dr. Vazquez was visiting. Patient is due for D/C today. Anxiety seems to be stable and verbalizes no complaints. Told her the antibiotic has been sent over to her pharmacy. She reports that she was not having any urinary symptoms prior to the diagnosis and does not have any current issues. PICC line in RUE without complication or discomfort. Hgb 8.9 and stable from yesterday. Constitutional: No fever, No chills Respiratory: No shortness of breath Cardiovascular: No chest pain Abdomen: + GI bleeding, No pain, No nausea, No vomiting, No diarrhea, No constipation Musculoskeletal: No swelling, No calf pain Female : No dysuria Neurologic: No numbness/tingling Psychiatric: + anxiety (improved) Heme: No abnormal bleeding/bruising Medications Current Inpatient Medications Medications (Trade) Dose Ordered Sig/Ramiro Route Start Time Stop Time Status Last Admin Dose Admin Docusate Sodium (coLACE CAP) 100 mg BID PO 09/25/16 21:00 10/25/16 20:59 09/30/16 08:37 100 MG Lorazepam (Ativan Tab) 1 mg Q6H PRN PO 09/25/16 14:45 10/25/16 14:44 09/26/16 15:42 1 MG Aspirin (Ecotrin Tab) 81 mg BID PO 09/25/16 21:00 10/25/16 20:59 09/30/16 08:59 81 MG Atorvastatin Calcium (Lipitor Tab) 20 mg QPM PO 09/25/16 21:00 10/25/16 20:59 09/26/16 20:55 20 MG Escitalopram Oxalate (Lexapro Tab) 10 mg QAM PO 09/26/16 09:00 10/26/16 08:59 09/28/16 09:07 10 MG Promethazine HCl (Phenergan Tab) 12.5 mg Q6H PRN PO 09/25/16 14:45 10/25/16 14:44 Miscellaneous Information (Consult Glycemic Management Pharmacy) 1 ea UD PRN N/A 09/25/16 15:36 10/25/16 15:35 Glucose (Glucose 40% Gel) 15-30 GRAMS 15 GRAMS... UD PRN PO 09/25/16 15:45 10/25/16 15:44 Glucose (Glucose Chew Tab) 4-8 Tablets 4 Tabl... UD PRN PO 09/25/16 15:45 10/25/16 15:44 Dextrose (Dextrose 50% 50ML Syringe) 25-50ML OF 50% DW IV FOR... UD PRN IV 09/25/16 15:45 10/25/16 15:44 Glucagon (Glucagon Inj) 1 mg UD PRN SQ 09/25/16 15:45 10/25/16 15:44 Hydralazine HCl (HydrALAZINE INJ) 10 mg Q6H PRN IV. 09/25/16 20:15 10/25/16 20:14 Magnesium Hydroxide (Milk Of Magnesia Susp) 30 ml BID PO 09/25/16 21:00 10/25/16 20:59 09/30/16 09:00 30 ML Alprazolam (Xanax Tab) 0.5 mg Q12H PRN PO 09/25/16 20:15 10/25/16 20:14 09/30/16 08:55 0.5 MG Promethazine HCl 12.5 mg/Sodium Chloride 50.5 ml @ 202 mls/hr Q6H PRN IV 09/27/16 10:00 10/27/16 09:59 Ondansetron HCl (Zofran Inj) 4 mg Q6H PRN IV 09/27/16 10:00 10/27/16 09:59 Metoclopramide HCl (Reglan Inj) 10 mg Q6H PRN IV 09/27/16 10:00 10/27/16 09:59 Lorazepam (Ativan Tab) 0.5 mg Q8H PRN PO 09/27/16 10:00 10/27/16 09:59 Lorazepam 0.5 mg/ Syringe 0.25 ml @ 1 mls/min Q8H PRN IV 09/27/16 10:00 10/27/16 09:59 Pneumococcal Polysaccharide Vaccine 1 ea PRN PRN N/A 09/27/16 10:00 10/27/16 09:59 Influenza Virus Vacc Triv Types A&B 1 ea PRN PRN N/A 09/27/16 10:00 10/27/16 09:59 Polyethylene (Miralax Powder Packet) 17 gm Q6 PO 09/29/16 12:30 10/29/16 12:29 09/30/16 06:14 17 GM Bisacodyl (Dulcolax Supp) 10 mg DAILY PRN [place] 09/27/16 10:00 10/27/16 09:59 Magnesium Hydroxide (Milk Of Magnesia Susp) 30 ml DAILY PRN PO 09/27/16 10:00 10/27/16 09:59 Oxycodone HCl (Roxicodone Immediate Rel Tab) 5-10mg prn moderate to sev... Q4H PRN PO 09/28/16 06:00 10/12/16 05:59 09/30/16 07:31 10 MG Acetaminophen (Tylenol Tab) 1,000 mg Q8H PRN PO 09/27/16 10:00 10/27/16 09:59 Naloxone HCl (Narcan Inj) 0.1 mg Q5M PRN IV 09/28/16 06:00 10/28/16 05:59 Senna/Docusate Sodium (Senokot S Tab) 2 tab HS PO 09/27/16 21:00 10/27/16 20:59 09/27/16 21:53 2 TAB Sodium Biphosphate/ Sodium Phosphate (Fleet Enema) 132 ml ONE PRN [place] 09/27/16 10:00 10/27/16 09:59 Hydroxyzine HCl (Vistaril Tab) 25 mg Q8H PRN PO 09/27/16 10:00 10/27/16 09:59 Al Hydroxide/Mg Hydroxide (Maalox Susp) 30 ml Q6H PRN PO 09/27/16 10:00 10/27/16 09:59 Famotidine (Pepcid Tab) 20 mg Q12 PRN PO 09/27/16 10:00 10/27/16 09:59 Diphenhydramine HCl (Benadryl Cap) 25 mg Q6H PRN PO 09/27/16 10:00 10/27/16 09:59 Hydromorphone HCl (Dilaudid Inj) 0.5 mg Q3H PRN IV 09/28/16 06:00 10/12/16 05:59 09/30/16 11:25 0.5 MG Hydromorphone HCl (Dilaudid Inj) 1 mg Q3H PRN IV 09/28/16 06:00 10/12/16 05:59 Pantoprazole Sodium (Protonix Tab) 40 mg QAM PO 09/28/16 09:00 10/28/16 08:59 09/30/16 08:59 40 MG Insulin Aspart (novoLOG ASPART) SLIDING SCALE ACHS SC 09/27/16 17:15 10/27/16 17:14 09/30/16 08:44 2 UNITS Cephalexin Monohydrate (Keflex Cap) 500 mg BID PO 09/29/16 09:00 10/03/16 08:59 09/30/16 08:59 500 MG Ioversol (Optiray 320) 125 ml UD PRN IV 09/28/16 13:30 10/02/16 13:29 Menthol (Nice Laura) 1 laura PRN PRN PO 09/28/16 17:00 10/28/16 16:59 09/28/16 18:58 1 LAURA Olmesartan (Benicar Tab) 40 mg QAM PO 09/29/16 09:00 10/29/16 08:59 09/30/16 08:58 40 MG Heparin Sodium (Porcine) (Heparin 10 Unit/ ml 5 ml Flush) 5 ml PRN PRN FLUSH 09/29/16 00:30 10/29/16 00:29 09/30/16 06:08 5 ML Sitagliptin Phosphate (Januvia Tab) 100 mg DAILY PO 09/29/16 12:00 10/29/16 11:59 09/30/16 08:59 100 MG Insulin Glargine (Lantus Solostar Pen) 12 units QAM SC 09/30/16 09:00 10/30/16 08:59 09/30/16 08:45 12 UNITS Objective Vital Signs Date Time Temp Pulse Resp B/P (MAP) Pulse Ox O2 Delivery O2 Flow Rate FiO2 09/30/16 11:15 36.7 67 16 98 Nasal Cannula 09/30/16 07:15 Room Air 09/30/16 06:30 36.7 67 16 139/71 (93) 98 Room Air 09/29/16 23:12 Room Air 09/29/16 22:50 36.9 77 16 127/68 (87) 97 Room Air 09/29/16 15:30 Room Air 09/29/16 15:00 36.4 68 18 116/68 (84) 96 Room Air Physical Exam General Appearance: WD/WN, no apparent distress Eyes: sclerae normal ENT: hearing grossly normal Neck: supple, no JVD, trachea midline Respiratory/Chest: lungs clear, normal breath sounds, no respiratory distress, no accessory muscle use Cardiovascular: regular rate, rhythm, no gallop, no murmur Abdomen: normal bowel sounds, non tender, soft Extremities: + pertinent finding (RUE PICC without tenderness, drainage, erythema) Neurologic/Psychiatric: alert, oriented x 3 Skin: normal color, warm/dry Laboratory Results Last 24 Hours Test 09/29/16 16:49 09/29/16 20:44 09/30/16 06:10 09/30/16 06:37 Bedside Glucose 160 mg/dl 225 mg/dl 72 mg/dl White Blood Count 10.67 K/uL Red Blood Count 3.24 M/uL Hemoglobin 8.9 g/dL Hematocrit 27.6 % Mean Corpuscular Volume 85.2 fL Mean Corpuscular Hemoglobin 27.5 pg Mean Corpuscular Hemoglobin Concent 32.2 g/dl RDW Standard Deviation 49.0 fL RDW Coefficient of Variation 15.7 % Platelet Count 231 K/uL Mean Platelet Volume 10.4 fL Sodium Level 141 mmol/L Potassium Level 3.8 mmol/L Chloride Level 108 mmol/L Carbon Dioxide Level 30 mmol/L Anion Gap 3.0 mmol/L Blood Urea Nitrogen 15 mg/dl Creatinine 0.43 mg/dl Est Creatinine Clear Calc Drug Dose 128.2 ml/min Estimated GFR () 121.1 Estimated GFR (Non- 104.5 BUN/Creatinine Ratio 35.0 Random Glucose 79 mg/dl Calcium Level 7.6 mg/dl Magnesium Level 2.3 mg/dl Test 09/30/16 07:04 Bedside Glucose 102 mg/dl Assessment and Plan This patient is a 66-year-old female with a history of DMII, hypertension, hyperlipidemia, and anxiety that presents with intractable left sided lumbar radiculopathy that is failing medical management. She does have severe spinal stenosis. Lumbar Radiculopathy/Intractable Pain S/P Lumbar Decompression and Fusion 09/27: - Pain management, DVT prophylaxis with SCDs, and PT per primary team - Continue aggressive bowel regimen given the amount of narcotics that she is requiring and the rectal bleeding -- Colace 100 mg twice daily scheduled. Milk of magnesia 1 dose daily scheduled. MiraLAX prn. Rectal Bleeding/Acute Blood Loss Anemia/Possible Internal Hemorrhoids vs Diverticular: - Transfused 2 units PRBC 09/28 - remaining stable at 8.9 - GI followed - planned for outpatient colonoscopy (patient unsure) - recommends to keep stool soft -- Declined YENIFER by GI and Hospitalist group Pansensitive E. Coli: - Rocephin x 1 dose and converted to Keflex - finish Keflex 500 mg BID to finish 7 day course Diabetes Mellitus II- HgbA1C 8.1% now up from previous 7.4% - Improved off steroids - pharmacy managing - Patient is noncompliant with her Accu-Cheks at home due to needle phobia Hypertension: STABLE - Benicar HCT on dc Hyperlipidemia: STABLE - Lipitor 20 mg daily Anxiety: Exacerbated by medical condition and being in hospital -Continue Lexapro and Xanax 0.5 mg twice daily as needed - Pt declines Psych consult this admission - PICC placed to help avoid multiple needle sticks for blood draws and loss of IV access - D/C'd DVT Prophylaxis: SCDs/TEDs Disposition: Home today per primary team - outpatient follow-up to include CBC in a few days recommended
== END 2016-09-30 12:00 | disposition home or self-care (01) | DRG 460 ==
LOC: EDBD 13:54 → C.EDA 13:55 → EDSTATUS 14:27 → C.MSN 14:45
PROVIDERS: ADMIT Orthopaedic Surgery Orthopaedic Surgery of the Spine; ATTEND Orthopaedic Surgery Orthopaedic Surgery of the Spine
PROC: 0SG0071 Fusion of Lumbar Vertebral Joint with Autologous Tissue Substitute, Posterior Approach, Posterior Column, Open Approach (ICD-10-PCS; principal; 2016-09-27 07:45)
PROC: 0ST20ZZ Resection of Lumbar Vertebral Disc, Open Approach (ICD-10-PCS; principal; 2016-09-27 07:45)
PROC: 0SG00AJ Fusion of Lumbar Vertebral Joint with Interbody Fusion Device, Posterior Approach, Anterior Column, Open Approach (ICD-10-PCS; principal; 2016-09-27 07:45)
PROC: 02HV33Z Insertion of Infusion Device into Superior Vena Cava, Percutaneous Approach (ICD-10-PCS; 2016-09-28)
DX: M51.16 Intervertebral disc disorders with radiculopathy, lumbar region (principal); K62.5 Hemorrhage of anus and rectum; D62 Acute posthemorrhagic anemia; N39.0 Urinary tract infection, site not specified; E11.9 Type 2 diabetes mellitus without complications; Z96.641 Presence of right artificial hip joint; M48.06 Spinal stenosis, lumbar region; E78.5 Hyperlipidemia, unspecified; Z87.891 Personal history of nicotine dependence; F41.9 Anxiety disorder, unspecified; Z91.19 Patient's noncompliance with other medical treatment and regimen; B96.20 Unspecified Escherichia coli [E. coli] as the cause of diseases classified elsewhere; I10 Essential (primary) hypertension